=== PATIENT | male | born 1975 | race Caucasian/White ===

== ENCOUNTER 2016-09-19 16:00 | Emergency (ER) | payer OTHER, MEDICARE ==
[2016-09-19] MEDS ORDERED: NORMAL SALINE 1000 ML 1,000 ML IV ONE (16:20)
--- NOTE | 2016-09-19 16:41 | RADIOLOGY REPORT (SQ) ---
EXAM DESCRIPTION: CT HEAD WITHOUT COMPLETED DATE/TIME: 09/19/2016 4:27 pm REASON FOR STUDY: AMS, COMPARISON: None. TECHNIQUE: Axial images acquired through the brain without intravenous contrast. Images reviewed wi th bone, brain and subdural windows. Images stored on PACS. All CT scanners at this facility use dose modulation, iterative reconstruction, and/or weight based d osing when appropriate to reduce radiation dose to as low as reasonably achievable (ALARA). [facility]: Dose Right [facility]: CareDose [facility]: Dose Right [facility]: Teradose 4D [facility]: Smart Xerox RADIATION DOSE: Up-to-date CT equipment and radiation dose reduction techniques were employed. CTDIv ol: 64.6 mGy. DLP: 1163 mGy-cm. mGy. LIMITATIONS: None. FINDINGS: VENTRICLES: Normal size and contour. CEREBRUM: No masses. No hemorrhage. No midline shift. Normal muñiz/white matter differentiation. N o evidence for acute infarction. CEREBELLUM: No masses. No hemorrhage. No alteration of density. No evidence for acute infarction. EXTRAAXIAL SPACES: No fluid collections. No masses. ORBITS AND GLOBE: No intra- or extraconal masses. Normal contour of globe without masses. CALVARIUM: No fracture. PARANASAL SINUSES: Mucosal thickening is identified in several of the ethmoidal sinuses and a small m ucosal polyp retention cyst is identified in the left maxillary antra. SOFT TISSUES: No mass or hematoma. OTHER: No other significant finding. IMPRESSION: No significant intracranial abnormalities were identified. Other findings as noted abov e TECHNICAL DOCUMENTATION: JOB ID: [id number] Quality ID # [id number]: Final reports with documentation of one or more dose reduction techniques (e.g., Au tomated exposure control, adjustment of the mA and/or kV according to patient size, use of iterative reconstruction technique) 2010 [employer]- All Rights Reserved
--- NOTE | 2016-09-19 17:03 | ER Document Report ---
ED Syncope and Near Syncope - General Chief Complaint: Syncope Stated Complaint: SYNCOPE Time Seen by Provider: 09/19/16 16:12 Notes: The patient is a 41-year-old male, PMHx seizure disorder, who presents after he was outside, felt nauseous, vomited and then had a syncopal episode. When EMS arrived he was diaphoretic and sleepy. He was given 4 mg IV Zofran and 500 mL normal saline. He no longer feels nauseous or lightheaded. Patient denies chest pain, abdominal pain, numbness, tingling, hematemesis, diarrhea, constipation, fevers, drug use, alcohol use, seizure activity or back pain. TRAVEL OUTSIDE OF THE [place] IN LAST 30 DAYS: No - Related Data Allergies/Adverse Reactions: Penicillins Allergy (Verified 09/19/16 16:19) metoclopramide [From Reglan] Adverse Reaction (Verified 09/19/16 16:19) Past Medical History - General Information source: Patient - Social History Smoking Status: Current Every Day Smoker Chew tobacco use (# tins/day): No Frequency of alcohol use: None Drug Abuse: None Family History: Reviewed & Not Pertinent Neurological Medical History: Reports: Hx Seizures Surgical Hx: Negative Review of Systems - Review of Systems Notes: REVIEW OF SYSTEMS: CONSTITUTIONAL: -fevers, -chills EENT: -eye pain, -difficulty swallowing, -nasal congestion CARDIOVASCULAR:-chest pain, +syncope. RESPIRATORY: -cough, -SOB GASTROINTESTINAL: -abdominal pain, +nausea, +vomiting, -diarrhea GENITOURINARY: -dysuria, -hematuria MUSCULOSKELETAL: -back pain, -neck pain SKIN: -rash or skin lesions. HEMATOLOGIC: -easy bruising or bleeding. LYMPHATIC: -swollen, enlarged glands. NEUROLOGICAL: -altered mental status or loss of consciousness, -headache, - neurologic symptoms PSYCHIATRIC: -anxiety, -depression. ALL OTHER SYSTEMS REVIEWED AND NEGATIVE. Physical Exam - Vital signs Vitals: Temp Pulse Resp BP Pulse Ox 97.2 F 61 14 126/82 H 96 09/19/16 16:15 09/19/16 16:15 09/19/16 16:15 09/19/16 16:15 09/19/16 16:15 - Notes Notes: PHYSICAL EXAMINATION: GENERAL: Well-appearing, well-nourished and in no acute distress. HEAD: Atraumatic, normocephalic. Grass over ride side of head. EYES: Pupils equal round and reactive to light, extraocular movements intact, sclera anicteric, conjunctiva are normal. ENT: nares patent, oropharynx clear without exudates. Moist mucous membranes. NECK: Normal range of motion, supple without lymphadenopathy LUNGS: Breath sounds clear to auscultation bilaterally and equal. No wheezes rales or rhonchi. HEART: Regular rate and rhythm without murmurs ABDOMEN: Soft, nontender, normoactive bowel sounds. No guarding, no rebound. No masses appreciated. EXTREMITIES: Normal range of motion, no pitting or edema. No cyanosis. NEUROLOGICAL: Cranial nerves grossly intact. Normal speech, normal gait. Normal sensory and motor exams. PSYCH: Normal mood, normal affect. SKIN: Warm, Dry, normal turgor, no rashes or lesions noted. Course - Re-evaluation Re-evalutation: Patient appears very well and is no longer having any symptoms. Monitored on the patient monitor without any arrhythmias. Patient is low risk for dangerous causes of syncope based on [place] syncope guidelines. Patient with a leukocytosis, but no signs of infection or fever at this time. This may be reactive to his fall or there may have been some seizure activity that caused his symptoms and thus the leukocytosis. He is safe to follow with his primary care physician for further evaluation and treatment - Vital Signs Vital signs: Temp Pulse Resp BP Pulse Ox 97.2 F 61 16 115/77 93 09/19/16 16:15 09/19/16 16:15 09/19/16 19:01 09/19/16 19:00 09/19/16 19:01 - Laboratory Result Diagrams: 09/19/16 16:37 09/19/16 16:37 Laboratory results interpreted by me: 09/19/16 09/19/16 09/19/16 16:37 16:37 18:11 WBC 18.2 H Seg Neutrophils % 88.3 H Lymphocytes % 6.5 L Absolute Neutrophils 16.1 H Glucose 116 H Urine Ketones TRACE H Urine Urobilinogen 4.0 H - Diagnostic Test Radiology reviewed: Image reviewed, Reports reviewed Radiology results interpreted by me: Head CT: NAD CXR: NAD - EKG Interpretation by Me EKG shows normal: Sinus rhythm, [place], Intervals, QRS Complexes, ST-T Waves Rate: Normal Discharge - Discharge Clinical Impression: Syncope Qualifiers: Syncope type: unspecified Qualified Code(s): R55 - Syncope and collapse Condition: Stable Disposition: HOME, SELF-CARE Additional Instructions: Syncopal Episode Syncope (fainting or near-fainting) can occur from many different health problems. Or it can be a simple fainting spell requiring no treatment. It is safe for you to go home, but further evaluation will likely be necessary. Your work-up may include tests for internal bleeding, heart disease, medication problems, or near-strokes. Tests are not always required, however, depending on the nature of your problem. The warning signs of an impending faint include: dizziness, lightheadedness , nausea, hot flashes, tingling, and weakness. If this happens, lay down and put your feet up, then wait until all of these symptoms have passed before standing up again. If these episodes become recurrent, or if you develop chest pain, heart palpitations, mental confusion, blurred vision, or headache, then you should call the physician, or go to the emergency room. Prescriptions: Ondansetron HCl [Zofran 4 mg Tablet] 1 - 2 tab PO Q4H PRN #10 tablet PRN Reason:
--- NOTE | 2016-09-19 17:12 | RADIOLOGY REPORT (SQ) ---
EXAM DESCRIPTION: CHEST SINGLE VIEW COMPLETED DATE/TIME: 09/19/2016 4:49 pm REASON FOR STUDY: SOB COMPARISON: None. EXAM PARAMETERS: NUMBER OF VIEWS: One view. TECHNIQUE: Single frontal radiographic view of the chest acquired. RADIATION DOSE: NA LIMITATIONS: None. FINDINGS: LUNGS AND PLEURA: No opacities, masses or pneumothorax. No pleural effusion. MEDIASTINUM AND HILAR STRUCTURES: No masses. Contour normal. HEART AND VASCULAR STRUCTURES: Heart normal in size. Normal vasculature. BONES: No acute findings. HARDWARE: None in the chest. OTHER: No other significant finding. IMPRESSION: NO ACUTE RADIOGRAPHIC FINDING IN THE CHEST. TECHNICAL DOCUMENTATION: JOB ID: [id number]
[2016-09-19 17:13] LABS: ABSOLUTE EOSINOPHILS # (AUTO) 0.1 10^3/uL (0.0-0.6); ABSOLUTE LYMPHOCYTES (AUTO) 1.2 10^3/uL (0.5-4.7); ABSOLUTE MONOCYTES (AUTO) 0.8 10^3/uL (0.1-1.4); ABSOLUTE NEUT (AUTO) 16.1 10^3/uL (1.7-8.2); BASOPHILS % (AUTO) 0.2 % (0-2); EOSINOPHILS % (AUTO) 0.4 % (0-6); HEMATOCRIT 48.6 % (37.9-51.0); HEMOGLOBIN 16.3 g/dL (13.5-17.0); HGB HCT DIFFERENCE 0.3; LYMPHOCYTES % (AUTO) 6.5 % (13-45); MEAN CORPUSCULAR HEMOGLOBIN 29.6 pg (27.0-33.4); MEAN CORPUSCULAR HGB CONC 33.5 g/dL (32.0-36.0); MEAN CORPUSCULAR VOLUME 88 fl (80-97); MONOCYTES % (AUTO) 4.6 % (3-13); RED BLOOD COUNT 5.51 10^6/uL (4.35-5.55); RED CELL DISTRIBUTION WIDTH 12.8 % (11.5-14.0); SEGMENTED NEUTROPHILS % (AUTO) 88.3 % (42-78); WHITE BLOOD COUNT 18.2 10^3/uL (4.0-10.5)
[2016-09-19 17:27] LABS: ALANINE AMINOTRANSFERASE 29 U/L (21-72); ALBUMIN 4.1 g/dL (3.5-5.0); ALKALINE PHOSPHATASE 84 U/L (38-126); ANION GAP 12 (5-19); ASPARTATE AMINO TRANSFERASE 23 U/L (17-59); BILIRUBIN,DIRECT 0.4 mg/dL (0.0-0.4); BLOOD UREA NITROGEN 15 mg/dL (7-20); CALCIUM 9.2 mg/dL (8.4-10.2); CARBON DIOXIDE 26 mmol/L (22-30); CHLORIDE 106 mmol/L (98-107); CREATINE KINASE 58 U/L (55-170); CREATININE RESULT 0.94 mg/dL (0.52-1.25); GLUCOSE 116 mg/dL (75-110); LIPASE 62.5 U/L (23-300); POTASSIUM 3.9 mmol/L (3.6-5.0); TOTAL PROTEIN 7.4 g/dL (6.3-8.2)
[2016-09-19 17:39] LABS: TROPONIN I < 0.012 ng/mL
[2016-09-19 18:27] LABS: APPEARANCE,URINE CLEAR; BILIRUBIN,URINE NEGATIVE (NEGATIVE); GLUCOSE, URINE NEGATIVE (NEGATIVE); KETONES,URINE TRACE mg/dL (NEGATIVE); LEUKOCYTE ESTERASE,URINE NEGATIVE (NEGATIVE); NITRITE,URINE NEGATIVE (NEGATIVE); PROTEIN,URINE NEGATIVE (NEGATIVE); URINE SPECIFIC GRAVITY 1.025
[2016-09-19 18:40] LABS: URINE BARBITURATES SCREEN NEGATIVE; URINE METHADONE SCREEN NEGATIVE; URINE OPIATES LOW NEGATIVE; URINE PHENCYCLIDINE SCREEN NEGATIVE
[2016-09-19 19:38] VITALS: BP 125/82
--- NOTE | 2016-09-19 20:19 | EKG REPORT ---
SEVERITY:- NORMAL ECG - SINUS RHYTHM : Confirmed by: Danyel Maya MD 19-Sep-2016 20:18:15
== END 2016-09-19 19:38 | disposition home or self-care (01) ==
LOC: ER 16:00
DX: R55 Syncope and collapse (principal); R11.2 Nausea with vomiting, unspecified; F17.200 Nicotine dependence, unspecified, uncomplicated; Z88.0 Allergy status to penicillin
CPT/HCPCS: 93005; 94640; 99285; 96360; 36415; 82550; 83690; 85025; 80053; 81001; 84484; 80307; 83880; 71010; 70450; 93010; J7030

== ENCOUNTER 2016-09-30 13:09 | Observation (INO) | payer OTHER, MEDICARE ==
[2016-09-30] MEDS ORDERED: ASPIRIN 81 MG TABLET, CHEWABLE PO ONE (13:22)
--- NOTE | 2016-09-30 13:25 | ER Document Report ---
ED Medical Screen (RME) - General Chief Complaint: Chest Pain Stated Complaint: CHEST PAIN Time Seen by Provider: 09/30/16 13:22 Notes: Pt states he was sent to the ER by [facility] for chest pain and irregular heart rate. Pt states symptoms started this am around 1030, feels SOB. Seen in ER last week for same, told to follow up with [facility] ([facility]). I have greeted and performed a rapid initial assessment of this patient. A comprehensive ED assessment and evaluation of the patient, analysis of test results and completion of the medical decision making process will be conducted by additional ED providers. TRAVEL OUTSIDE OF THE U[place]S. IN LAST 30 DAYS: No - Related Data Allergies/Adverse Reactions: Penicillins Allergy (Verified 09/19/16 16:19) metoclopramide [From Reglan] Adverse Reaction (Verified 09/19/16 16:19) Past Medical History Neurological Medical History: Reports: Hx Seizures Physical Exam - Vital signs Vitals: Temp Pulse Resp BP Pulse Ox 98.6 F 60 16 133/79 H 97 09/30/16 13:23 09/30/16 13:23 09/30/16 13:23 09/30/16 13:23 09/30/16 13:23 Course - Vital Signs Vital signs: Temp Pulse Resp BP Pulse Ox 98.6 F 60 16 133/79 H 97 09/30/16 13:23 09/30/16 13:23 09/30/16 13:23 09/30/16 13:23 09/30/16 13:23 - Laboratory Result Diagrams: 09/30/16 14:10 09/30/16 14:10
[2016-09-30 14:25] LABS: ABSOLUTE EOSINOPHILS # (AUTO) 0.4 10^3/uL (0.0-0.6); ABSOLUTE LYMPHOCYTES (AUTO) 2.5 10^3/uL (0.5-4.7); ABSOLUTE MONOCYTES (AUTO) 0.8 10^3/uL (0.1-1.4); ABSOLUTE NEUT (AUTO) 4.5 10^3/uL (1.7-8.2); BASOPHILS % (AUTO) 0.5 % (0-2); EOSINOPHILS % (AUTO) 5.3 % (0-6); HEMATOCRIT 46.4 % (37.9-51.0); HEMOGLOBIN 16.4 g/dL (13.5-17.0); HGB HCT DIFFERENCE 2.8; LYMPHOCYTES % (AUTO) 30.7 % (13-45); MEAN CORPUSCULAR HGB CONC 35.3 g/dL (32.0-36.0); MEAN CORPUSCULAR VOLUME 88 fl (80-97); MONOCYTES % (AUTO) 9.2 % (3-13); RED BLOOD COUNT 5.29 10^6/uL (4.35-5.55); RED CELL DISTRIBUTION WIDTH 13.1 % (11.5-14.0); SEGMENTED NEUTROPHILS % (AUTO) 54.3 % (42-78); WHITE BLOOD COUNT 8.2 10^3/uL (4.0-10.5)
[2016-09-30 14:38] LABS: ALANINE AMINOTRANSFERASE 32 U/L (21-72); ALKALINE PHOSPHATASE 75 U/L (38-126); ANION GAP 10 (5-19); ASPARTATE AMINO TRANSFERASE 27 U/L (17-59); BILIRUBIN,DIRECT 0.2 mg/dL (0.0-0.4); BILIRUBIN,TOTAL 0.8 mg/dL (0.2-1.3); BLOOD UREA NITROGEN 13 mg/dL (7-20); CALCIUM 9.3 mg/dL (8.4-10.2); CARBON DIOXIDE 27 mmol/L (22-30); CHLORIDE 104 mmol/L (98-107); CREATINE KINASE 128 U/L (55-170); CREATININE RESULT 0.94 mg/dL (0.52-1.25); GLUCOSE 88 mg/dL (75-110); POTASSIUM 4.3 mmol/L (3.6-5.0); SODIUM 141.3 mmol/L (137-145); TOTAL PROTEIN 7.2 g/dL (6.3-8.2)
[2016-09-30 14:49] LABS: CREATINE KINASE MB 0.99 ng/mL (<4.55)
[2016-09-30 14:50] LABS: TROPONIN I < 0.012 ng/mL
--- NOTE | 2016-09-30 14:53 | RADIOLOGY REPORT (SQ) ---
EXAM DESCRIPTION: CHEST SINGLE VIEW COMPLETED DATE/TIME: 09/30/2016 2:21 pm REASON FOR STUDY: chest pain COMPARISON: 09/19/2016. EXAM PARAMETERS: NUMBER OF VIEWS: One view. TECHNIQUE: Single frontal radiographic view of the chest acquired. RADIATION DOSE: NA LIMITATIONS: None. FINDINGS: LUNGS AND PLEURA: No opacities, masses or pneumothorax. No pleural effusion. MEDIASTINUM AND HILAR STRUCTURES: No masses. Contour normal. HEART AND VASCULAR STRUCTURES: Heart normal in size. Normal vasculature. BONES: No acute findings. HARDWARE: None in the chest. OTHER: Possible calcified gallstone in the upper abdomen. IMPRESSION: NO ACUTE RADIOGRAPHIC FINDING IN THE CHEST. TECHNICAL DOCUMENTATION: JOB ID: [id number]
[2016-09-30] MEDS ORDERED: MAG HYDROX/AL HYDROX/SIMETH SUSP 30 ML UDCUP PO ONE (16:36)
[2016-09-30] MEDS ORDERED: LIDOCAINE 2% VISCOUS SOLN 20 ML UDCUP PO ONE (16:36)
[2016-09-30] MEDS ORDERED: NITROGLYCERIN 2% OINTMENT 1 GM PACKET TP ONE (16:39)
--- NOTE | 2016-09-30 16:39 | ER Document Report ---
ED Cardiac - General Chief Complaint: Chest Pain Stated Complaint: CHEST PAIN Time Seen by Provider: 09/30/16 13:22 Mode of Arrival: Ambulatory Information source: Patient Notes: Patient is a 41-year-old male who presents to the emergency department today for left-sided chest pain radiating into his left arm and left shoulder that has been coming and going since 06 September, he was seen here on the and had negative cardiac workup with a syncopal episode. Patient states that since that time it is still continue to come and go, today worsening. He went to the [facility] today to have a follow-up appointment from our visit in the emergency department on the of this month, and his heart rate was in the 50s which he is unsure if it is normal for him or not, but he was still having chest pain and diaphoretic so the [facility] told him to come to the emergency department. He states it feels like a "mule on my chest" and that it presents with nausea as well. He denies any history of heart attack or stroke, but both parents had heart attacks and strokes in their 40s. TRAVEL OUTSIDE OF THE [place] IN LAST 30 DAYS: No - Related Data Allergies/Adverse Reactions: Penicillins Allergy (Verified 09/19/16 16:19) metoclopramide [From Reglan] Adverse Reaction (Verified 09/19/16 16:19) Past Medical History - General Information source: Patient - Social History Smoking Status: Former Smoker Family History: Reviewed & Not Pertinent Patient has suicidal ideation: No Patient has homicidal ideation: No Neurological Medical History: Reports: Hx Seizures Renal/ Medical History: Denies: Hx Peritoneal Dialysis Review of Systems - Review of Systems Constitutional: No symptoms reported EENT: No symptoms reported Cardiovascular: See HPI Respiratory: No symptoms reported Gastrointestinal: See HPI Genitourinary: No symptoms reported Male Genitourinary: No symptoms reported Musculoskeletal: No symptoms reported Skin: No symptoms reported Hematologic/Lymphatic: No symptoms reported Neurological/Psychological: No symptoms reported Physical Exam - Vital signs Vitals: Temp Pulse Resp BP Pulse Ox 98.6 F 60 16 133/79 H 97 09/30/16 13:23 09/30/16 13:23 09/30/16 13:23 09/30/16 13:23 09/30/16 13:23 - Notes Notes: PHYSICAL EXAMINATION: GENERAL: Well-appearing and in no acute distress. HEAD: Atraumatic, normocephalic. EYES: Pupils equal round and reactive to light, extraocular movements intact, sclera anicteric, conjunctiva are normal. ENT: ear canals without erythema or foreign body, TMs pearly casillas with good bony landmarks, nares patent, oropharynx clear without exudates. Moist mucous membranes. NECK: Normal range of motion, supple without lymphadenopathy LUNGS: CTAB and equal. No wheezes rales or rhonchi. HEART: Regular rate and rhythm without murmurs ABDOMEN: Soft, no tenderness. No guarding, no rebound BACK: no vertebral tenderness, normal ROM GI/: no CVA tenderness EXTREMITIES: Normal range of motion, no pitting edema. No cyanosis. NEUROLOGICAL: Cranial nerves grossly intact. Normal sensory/motor exams. PSYCH: Normal mood, normal affect. SKIN: Warm, Dry, normal turgor, no rashes or lesions noted Course - Re-evaluation Re-evalutation: 09/30/16 17:34 Patient's significant family history and symptoms with his chest pain, this seems likely that it could be cardiac event. Dr. Galeano, hospitalist agrees to admit patient for chest pain rule out at this time a stress test. Patient never had a stress test. EKG reveals a normal sinus rhythm at a rate of 58 bpm with no evidence of ischemia. - Vital Signs Vital signs: Temp Pulse Resp BP Pulse Ox 98.6 F 60 16 133/79 H 97 09/30/16 13:23 09/30/16 13:23 09/30/16 13:23 09/30/16 13:23 09/30/16 13:23 - Laboratory Result Diagrams: 09/30/16 14:10 09/30/16 14:10 Discharge - Discharge Clinical Impression: Chest pain Qualifiers: Chest pain type: unspecified Qualified Code(s): R07.9 - Chest pain, unspecified Condition: Stable Disposition: ADMITTED OBSERVATION Admitting Provider: Hospitalist Unit Admitted: Telemetry Referrals: KEISHA TINSLEY MD [Primary Care Provider] - Follow up as needed
[2016-09-30] MEDS ORDERED: ACETAMINOPHEN 325 MG TABLET PO PRN (17:49)
--- NOTE | 2016-09-30 18:10 | PDOC H&P ---
History of Present Illness Admission Date/PCP: KEISHA TINSLEY MD Patient complains of: Chest pain History of Present Illness: JARED MACDONALD is a 41 year old male presents to the emergency department today with onset of left-sided chest pressure radiating to his left arm. This occurred while he was at rest and was associated with diaphoresis. Patient had significant relief of his chest discomfort with nitroglycerin paste in the emergency department. He had a similar episode on the of this month that was associated with a near syncopal episode. At that time his chest pressure felt worse while he was trying to mow the yard. He denies nausea or vomiting. He has a family history of early coronary artery disease in both parents. Medications have not been verified. Patient reports that he takes Depakote 1000 mg every morning and 1500 mg nightly, Paxil unknown dose. Past Medical History Cardiac Medical History: Reports: None Pulmonary Medical History: Reports: None EENT Medical History: Reports: None Neurological Medical History: Reports: Seizures Past Surgical History Past Surgical History: Reports: Orthopedic Surgery - Right shoulder, right knee Social History Information Source: Patient Lives with: Spouse/Significant other Smoking Status: Former Smoker Frequency of Alcohol Use: Rare Hx Recreational Drug Use: No Hx Prescription Drug Abuse: No - Advance Directive Resuscitation Status: Full Code Surrogate healthcare decision maker:: Family History Family History: CAD Parental Family History Reviewed: Yes Children Family History Reviewed: Yes Sibling(s) Family History Reviewed.: Yes Medication/Allergy Allergies/Adverse Reactions: Penicillins Allergy (Verified 09/19/16 16:19) metoclopramide [From Reglan] Adverse Reaction (Verified 09/19/16 16:19) Review of Systems Review of Systems: ROS: CONSTITUTIONAL- Denies fever, chills, weight loss, weight gain, anorexia HEENT- Denies visual disturbance, headache, hearing loss RESPIRATORY- Denies dyspnea, cough, hemoptysis, pleurisy CARDIAC- Denies paroxysmal nocturnal dyspnea, orthopnea, edema ABDOMEN- Denies abdominal pain, nausea, vomiting, diarrhea, constipation, hematemesis, melena, hematochezia - Denies dysuria, urgency, frequency, hematuria SKIN- Denies rash, wounds MUSCULOSKELETAL- Denies joint pain, joint swelling NEUROLOGY- Denies weakness, numbness, dizziness, dysphagia, dysarthria,ataxia ENDOCRINE- Denies polydipsia, polyuria, hot/cold intolerance PSYCHIATRIC- Denies depression, anxiety, hallucination, delusion HEMATOLOGY- Denies ease of bleeding, ease of bruising bruising Physical Exam Vital Signs: Temp Pulse Resp BP Pulse Ox 98.6 F 60 20 125/85 97 09/30/16 13:23 09/30/16 13:23 09/30/16 17:01 09/30/16 17:01 09/30/16 17:01 Intake & Output 09/29/16 09/30/16 10/01/16 06:59 06:59 06:59 Weight 95 kg PHYSICAL EXAM: GENERAL: Appears well, no acute distress HEENT: Normocephalic, no scleral icterus, conjunctiva clear, EOEM intact, PERRLA , moist mucous membranes NECK: trachea midline, no thyromegally RESPIRATORY: Clear to auscultation, no wheezes/rhonchi CARDIAC: Regular rate and rhythm, no murmur/zackary/rub ABDOMEN: Soft, no distension, no tenderness, no guarding, normal bowel sounds, negative Gonzalez sign RECTAL: deferred : deferred EXTREMITIES: No edema, cyanosis, clubbing MUSCULOSKELETAL: No joint swelling or deformity. No reproducible chest wall tenderness. No calf tenderness. VASCULAR: normal peripheral pulses NEUROLOGIC: Alert, oriented to person/place/time, normal speech, cranial nerves grossly intact, 5/5 strength in all extremities, tactile sensation intact in all extremities SKIN: No rash, no wounds, no worrisome skin lesions PSYCHIATRIC: Normal mood, normal affect Results Laboratory Results: 09/30/16 14:10 09/30/16 14:10 09/30/16 09/30/16 14:10 14:10 WBC 8.2 RBC 5.29 Hgb 16.4 Hct 46.4 MCV 88 MCH 31.0 MCHC 35.3 RDW 13.1 Plt Count 229 Seg Neutrophils % 54.3 Lymphocytes % 30.7 Monocytes % 9.2 Eosinophils % 5.3 Basophils % 0.5 Absolute Neutrophils 4.5 Absolute Lymphocytes 2.5 Absolute Monocytes 0.8 Absolute Eosinophils 0.4 Absolute Basophils 0.0 Sodium 141.3 Potassium 4.3 Chloride 104 Carbon Dioxide 27 Anion Gap 10 BUN 13 Creatinine 0.94 Est GFR ( Amer) > 60 Est GFR (Non-Af Amer) > 60 Glucose 88 Calcium 9.3 Total Bilirubin 0.8 AST 27 ALT 32 Alkaline Phosphatase 75 Total Protein 7.2 Albumin 4.0 09/30/16 09/30/16 14:10 14:10 Creatine Kinase 128 CK-MB (CK-2) 0.99 Troponin I < 0.012 EKG Comments: Normal sinus rhythm, no acute ST elevation or depression, no acute T-wave inversion. Impressions: Chest X-Ray 09/30/16 13:22 IMPRESSION: NO ACUTE RADIOGRAPHIC FINDING IN THE CHEST. Assessment & Plan - Diagnosis (1) Chest pain Qualifiers: Chest pain type: unspecified Qualified Code(s): R07.9 - Chest pain, unspecified Is this a current diagnosis for this admission?: YesPlan: Placed in observation status on telemetry monitoring. Serial cardiac enzymes. Check lipid panel in the morning. Continue nitroglycerin paste. Continue aspirin. Cardiolite stress test in the morning if enzymes negative. (2) Seizure disorder Is this a current diagnosis for this admission?: YesPlan: Continue Depakote. - Time Time Spent: 50 to 70 Minutes Anticipated discharge: Home Within: within 24 hours
[2016-09-30] MEDS ORDERED: ENOXAPARIN SODIUM INJ 40 MG/0.4 ML DISP.SYRIN SUBCUT ONE (19:00)
[2016-09-30] MEDS ORDERED: DIVALPROEX SODIUM 500 MG TAB.SR.24H PO SCH (22:00)
[2016-10-01] MEDS: NITROGLYCERIN 2% OINTMENT 1 GM PACKET TP SCH ×3 (00:51→12:12)
[2016-10-01 01:08] LABS: CREATINE KINASE MB 0.56 ng/mL (<4.55)
[2016-10-01 01:13] LABS: TROPONIN I < 0.012 ng/mL
[2016-10-01 05:59] LABS: CHOLESTEROL 160.74 mg/dL (0-200); CREATINE KINASE 71 U/L (55-170); Direct HDL 23 mg/dL (>40); TRIGLYCERIDES 202 mg/dL (<150)
[2016-10-01 06:09] LABS: CREATINE KINASE MB 0.52 ng/mL (<4.55)
[2016-10-01 06:10] LABS: DIRECT LDL 98 mg/dL (<100)
[2016-10-01 06:17] LABS: TROPONIN I < 0.012 ng/mL; VLDL CHOLESTEROL 40.4 mg/dL (10-31)
[2016-10-01] MEDS ORDERED: DIVALPROEX SODIUM 500 MG TAB.SR.24H PO SCH (08:00)
[2016-10-01 09:25] LABS: URINE BARBITURATES SCREEN NEGATIVE; URINE METHADONE SCREEN NEGATIVE; URINE OPIATES LOW NEGATIVE; URINE PHENCYCLIDINE SCREEN NEGATIVE
[2016-10-01] MEDS ORDERED: ENOXAPARIN SODIUM INJ 40 MG/0.4 ML DISP.SYRIN SUBCUT SCH ×2 (10:00)
[2016-10-01] MEDS ORDERED: ASPIRIN 325 MG TABLET, ENT COATED PO SCH (10:00)
[2016-10-01] MEDS ORDERED: REGADENOSON INJ 0.4 MG/5 ML DISP.SYRIN IV ONE (11:15)
[2016-10-01] MEDS ORDERED: AMINOPHYLLINE INJ/PF 250 MG/10 ML SDV IV ONE (11:15)
--- NOTE | 2016-10-01 12:50 | DRAGON STRESS TEST REPORT ---
INTRAVENOUS LEXISCAN CARDIOLITE STRESS TEST USING SINGLE PHOTON EMMISION COMPUTERIZED TOMOGRAPHIC. DATE OF PROCEDURE: October 01, 2016 INDICATION : Chest pain CARDIAC RISK FACTORS: Family history of CAD RESTING EKG: Sinus rhythm without any baseline ST-T wave changes STRESS EKG: No significant changes noted with LexiScan bolus REASON FOR TERMINATION: Protocol. PROCEDURE REPORT: Baseline heart rate 62 beats per minute with blood pressure of 119/65. Patient had no significant complaints. Heart rate at 2 minutes post bolus 97 with a blood pressure of 120/61. 3 minutes post bolus heart rate 75 with blood pressure of 113/66. No significant EKG changes were noted. Patient had no significant complaints during the procedure or postprocedure. Patient injected with Aminophyllin 75 mg at 3 minutes or later after Lexiscan bolus. CONCLUSIONS: Normal EKG and hemodynamic response to IV LexiScan. NUCLEAR DATA: At rest the patient was given 13.9 millicuries of technetium 99 sestamibi injected intravenously. As per protocol rest gated SPECT images were obtained. Subsequently the patient was given intravenous LexiScan at a dose of 0.4 mg in 5 mL intravenously, followed by flush with normal saline. Subsequently the stress dose of 44.0 millicuries of technetium 99 sestamibi was injected intravenously. As per protocol stress gated images were obtained. NUCLEAR INTERPRETATION: Both raw and processed data were used for interpretation. Visual, qualitative, computer-generated quantitative data was used. There was good myocardial uptake of technetium compound. Motion artifact and soft tissue attenuations were noted. Increased visceral uptake was noted. No definitive areas of transient perfusion defect noted. No definitive areas of fixed perfusion defect or scars noted. EKG gated imaging showed LV EF at 59 %, rest and stress gated EF similar visually. T. I D. ratio was 1.14. Lung heart ratio noted to be within normal limits 0.37. No significant extracardiac and abnormal radiotracer activities were noted. RV free wall uptake was noted to be []. IMPRESSION: Also refer to comments under nuclear interpretation. Also test results needs to be interpreted in the context of pretest probability. 1. There is no definitive scintigraphic evidence of LexiScan induced myocardial ischemia. 2. There is no definitive scintigraphic evidence of myocardial infarction/scar. 3. EKG gated imaging shows left ejection fraction of approximately 59 %. 4. Clinical correlation requested as occasionally single vessel disease or balanced ischemia could be missed. In approximately 10% of the cases Lexiscan may not cause adequate vasodilatory stress. RECOMMENDATIONS: Aggressive risk factor modification, medical therapy. Clinical correlation with echocardiogram derived ejection fraction. Inability to exercise by itself can lead to increased cardiovascular event risks. Consider cardiology consultation and or follow-up if clinically indicated. I AM AVAILABLE FOR CARDIOLOGY CONSULTATION AND FOLLOWUP IF REQUESTED BY PMD Carlos Ceballos M.D., [employer] Leader merchandise presentation manager, Board certified in cardiovascular diseases, Nuclear cardiology, Echocardiography Cardiac CT and cardiac MRI Ph. [phone] [facility]
--- NOTE | 2016-10-01 13:42 | PDOC DISCHARGE SUMMARY ---
General - Admit/Disc Date/PCP Admission Date/Primary Care Provider: 09/30/16 18:06 KEISHA TINSLEY MD Discharge Date: 10/01/16 - Discharge Diagnosis (1) Chest pain Is this a current diagnosis for this admission?: Yes (2) Seizure disorder Is this a current diagnosis for this admission?: Yes - Additional Information Resuscitation Status: Full Code Discharge Diet: Cardiac Discharge Activity: Activity As Tolerated Home Medications: Divalproex Sodium [Depakote] 1,000 mg PO DAILY 09/30/16 Divalproex Sodium [Depakote] 1,500 mg PO QHS 09/30/16 Paroxetine HCl [Paxil] 40 mg PO DAILY 09/30/16 History of Present Illness Patient complains of: Chest pain History of Present Illness: JARED MACDONALD is a 41 year old male presents to the emergency department today with onset of left-sided chest pressure radiating to his left arm. This occurred while he was at rest and was associated with diaphoresis. Patient had significant relief of his chest discomfort with nitroglycerin paste in the emergency department. He had a similar episode on the of this month that was associated with a near syncopal episode. At that time his chest pressure felt worse while he was trying to mow the yard. He denies nausea or vomiting. He has a family history of early coronary artery disease in both parents. Hospital Course Hospital Course: Placed in observation status overnight for chest pain. Telemetry monitoring stable. EKG normal sinus rhythm. Serial cardiac enzymes negative. Cardiolite stress test negative. Chest pain possibly gastrointestinal in nature. Patient chest pain-free at time of discharge. Follow-up primary care provider. Heart healthy diet and follow-up lipid panel in 1-2 months. Physical Exam Vital Signs: Temp Pulse Resp BP Pulse Ox 98.4 F 64 18 117/71 95 10/01/16 07:21 10/01/16 07:21 10/01/16 07:21 10/01/16 07:21 10/01/16 07:21 Intake & Output 09/30/16 10/01/16 10/02/16 06:59 06:59 06:59 Intake Total 205 Output Total 1 Balance 204 Weight 94.4 kg GENERAL: No acute distress HEENT: Conjunctiva clear, nonicteric, moist mucous membranes, no JVD, midline trachea RESPIRATORY: Clear to auscultation bilaterally, no wheezes, no rhonchi CARDIAC: Regular rate and rhythm, no murmurs/gallops/rubs ABDOMEN: Soft, nondistended, nontender, positive bowel sounds, no rebound, no guarding EXTREMETIES: No edema, cyanosis, clubbing NEUROLOGIC: Alert, oriented to person/place/time, CN's grossly intact, no focal deficits SKIN: No rash, wounds PSYCH: Normal mood, normal affect Results Laboratory Results: 10/01/16 05:27 Triglycerides 202 H Cholesterol 160.74 LDL Cholesterol Direct 98 VLDL Cholesterol 40.4 H HDL Cholesterol 23 L 10/01/16 10/01/16 10/01/16 00:15 00:15 05:27 Creatine Kinase 75 71 CK-MB (CK-2) 0.56 Troponin I < 0.012 10/01/16 05:27 Creatine Kinase CK-MB (CK-2) 0.52 Troponin I < 0.012 Labs- All tests 24 hr 09/30/16 09/30/16 09/30/16 14:10 14:10 14:10 WBC 8.2 RBC 5.29 Hgb 16.4 Hct 46.4 MCV 88 MCH 31.0 MCHC 35.3 RDW 13.1 Plt Count 229 Seg Neutrophils % 54.3 Lymphocytes % 30.7 Monocytes % 9.2 Eosinophils % 5.3 Basophils % 0.5 Absolute Neutrophils 4.5 Absolute Lymphocytes 2.5 Absolute Monocytes 0.8 Absolute Eosinophils 0.4 Absolute Basophils 0.0 Sodium 141.3 Potassium 4.3 Chloride 104 Carbon Dioxide 27 Anion Gap 10 BUN 13 Creatinine 0.94 Est GFR ( Amer) > 60 Est GFR (Non-Af Amer) > 60 Glucose 88 Calcium 9.3 Total Bilirubin 0.8 Direct Bilirubin 0.2 Indirect Bilirubin Not Reportable Neonat Total Bilirubin Not Reportable AST 27 ALT 32 Alkaline Phosphatase 75 Creatine Kinase 128 CK-MB (CK-2) 0.99 Troponin I < 0.012 Total Protein 7.2 Albumin 4.0 Triglycerides Cholesterol LDL Cholesterol Direct VLDL Cholesterol HDL Cholesterol Urine Opiates Screen Urine Methadone Screen Ur Barbiturates Screen Ur Phencyclidine Scrn Ur Amphetamines Screen U Benzodiazepines Scrn Urine Cocaine Screen U Marijuana (THC) Screen 09/30/16 09/30/16 09/30/16 17:20 17:20 17:20 WBC RBC Hgb Hct MCV MCH MCHC RDW Plt Count Seg Neutrophils % Lymphocytes % Monocytes % Eosinophils % Basophils % Absolute Neutrophils Absolute Lymphocytes Absolute Monocytes Absolute Eosinophils Absolute Basophils Sodium Potassium Chloride Carbon Dioxide Anion Gap BUN Creatinine Est GFR ( Amer) Est GFR (Non-Af Amer) Glucose Calcium Total Bilirubin Direct Bilirubin Indirect Bilirubin Neonat Total Bilirubin AST ALT Alkaline Phosphatase Creatine Kinase 104 CK-MB (CK-2) 1.13 Troponin I < 0.012 Cancelled Total Protein Albumin Triglycerides Cholesterol LDL Cholesterol Direct VLDL Cholesterol HDL Cholesterol Urine Opiates Screen Urine Methadone Screen Ur Barbiturates Screen Ur Phencyclidine Scrn Ur Amphetamines Screen U Benzodiazepines Scrn Urine Cocaine Screen U Marijuana (THC) Screen 10/01/16 10/01/16 10/01/16 00:15 00:15 05:27 WBC RBC Hgb Hct MCV MCH MCHC RDW Plt Count Seg Neutrophils % Lymphocytes % Monocytes % Eosinophils % Basophils % Absolute Neutrophils Absolute Lymphocytes Absolute Monocytes Absolute Eosinophils Absolute Basophils Sodium Potassium Chloride Carbon Dioxide Anion Gap BUN Creatinine Est GFR ( Amer) Est GFR (Non-Af Amer) Glucose Calcium Total Bilirubin Direct Bilirubin Indirect Bilirubin Neonat Total Bilirubin AST ALT Alkaline Phosphatase Creatine Kinase 75 71 CK-MB (CK-2) 0.56 Troponin I < 0.012 Total Protein Albumin Triglycerides 202 H Cholesterol 160.74 LDL Cholesterol Direct 98 VLDL Cholesterol 40.4 H HDL Cholesterol 23 L Urine Opiates Screen Urine Methadone Screen Ur Barbiturates Screen Ur Phencyclidine Scrn Ur Amphetamines Screen U Benzodiazepines Scrn Urine Cocaine Screen U Marijuana (THC) Screen 10/01/16 10/01/16 05:27 08:55 WBC RBC Hgb Hct MCV MCH MCHC RDW Plt Count Seg Neutrophils % Lymphocytes % Monocytes % Eosinophils % Basophils % Absolute Neutrophils Absolute Lymphocytes Absolute Monocytes Absolute Eosinophils Absolute Basophils Sodium Potassium Chloride Carbon Dioxide Anion Gap BUN Creatinine Est GFR ( Amer) Est GFR (Non-Af Amer) Glucose Calcium Total Bilirubin Direct Bilirubin Indirect Bilirubin Neonat Total Bilirubin AST ALT Alkaline Phosphatase Creatine Kinase CK-MB (CK-2) 0.52 Troponin I < 0.012 Total Protein Albumin Triglycerides Cholesterol LDL Cholesterol Direct VLDL Cholesterol HDL Cholesterol Urine Opiates Screen NEGATIVE Urine Methadone Screen NEGATIVE Ur Barbiturates Screen NEGATIVE Ur Phencyclidine Scrn NEGATIVE Ur Amphetamines Screen NEGATIVE U Benzodiazepines Scrn NEGATIVE Urine Cocaine Screen NEGATIVE U Marijuana (THC) Screen NEGATIVE Impressions: Chest X-Ray 07/25/17 13:22 IMPRESSION: NO ACUTE RADIOGRAPHIC FINDING IN THE CHEST. Qualifiers PATEINT BEING DISCHARGED WITH ANY OF THE FOLLOWING DIAGNOSIS?: No Plan Time Spent: Less than 30 Minutes
[2016-10-01 14:02] VITALS: BP 125/70
--- NOTE | 2016-10-01 16:20 | EKG REPORT ---
SEVERITY:- NORMAL ECG - SINUS RHYTHM : Confirmed by: Karyn Jeff MD 01-Oct-2016 16:20:14
[2016-10-01] MEDS ORDERED: ATORVASTATIN CALCIUM 20 MG TABLET PO SCH (22:00)
== END 2016-10-01 15:19 | disposition home or self-care (01) ==
LOC: ER 13:09 → EH 18:06 → 4N 21:38
PROVIDERS: ADMIT Family Medicine; ATTEND Family Medicine
DX: R07.89 Other chest pain (principal); G40.909 Epilepsy, unspecified, not intractable, without status epilepticus; R06.02 Shortness of breath; R61 Generalized hyperhidrosis; Z79.899 Other long term (current) drug therapy; Z82.49 Family history of ischemic heart disease and other diseases of the circulatory system; Z87.891 Personal history of nicotine dependence; Z86.73 Personal history of transient ischemic attack (TIA), and cerebral infarction without residual deficits
CPT/HCPCS: 93005; 99285; 96372; 36415 ×2; 82553 ×2; 82550 ×2; 85025; 80053; 84484 ×2; 80307; 80061; 93017; 71010; 78452; 93010; A9500; J2785; J3490 ×3; J1650; J0280; Q9969; G0378

== ENCOUNTER 2016-11-06 19:22 | Emergency (ER) | payer OTHER, MEDICARE ==
--- NOTE | 2016-11-06 20:07 | ER Document Report ---
HPI - HPI Pain Level: 4 Notes: Patient is a 41-year-old male who presents the ED complaining of right ankle and foot pain status post injury prior to arrival. Patient states that he was working on the ground floor when his foot went through the floor up to his duenas. Patient states that he then lost his balance and tripped over and caught himself in the process, but did hit his head off the tub. Patient states that the head was not at a high velocity. Patient states that he has a small goose egg on his forehead, but is otherwise feeling fine without any headache, loss of consciousness, nausea/vomiting, changes in vision/behavior/mentation/speech/ hearing. Patient states that his ankle pain does not radiate otherwise. Patient states that he does have some tingling in the right foot. Patient is unable to ambulate or bear weight on that foot. He has not had any over-the- counter meds for symptoms. Patient is accompanied by his family who also agree that they have not noticed any acute changes in his personality or neuro symptoms. Denies any headache, fever, neck pain, URI, sore throat, chest pain, palpitations, syncope, cough, shortness of breath, wheeze, dyspnea, abdominal pain, nausea/vomiting/diarrhea, urinary retention, dysuria, hematuria, loss of control of bowel or bladder, muscle paralysis/weakness, or rash. PMH significant for epilepsy. None recently per patient. Stable per patient. - ROS Notes: REVIEW OF SYSTEMS: CONSTITUTIONAL : Denies fever, chills, or sweats. Denies recent illness. EENT: Denies eye, ear, throat, or mouth pain or symptoms. Denies nasal or sinus congestion or discharge. Denies throat, tongue, or mouth swelling or difficulty swallowing. CARDIOVASCULAR: Denies chest pain. Denies palpitations or racing or irregular heart beat. Denies ankle edema. RESPIRATORY: Denies cough, cold, or chest congestion. Denies shortness of breath, difficulty breathing, or wheezing. GASTROINTESTINAL: Denies abdominal pain or distention. Denies nausea, vomiting , or diarrhea. Denies blood in vomitus, stools, or per rectum. Denies black, tarry stools. Denies constipation. GENITOURINARY: Denies difficulty urinating, painful urination, burning, frequency, blood in urine, or discharge. MUSCULOSKELETAL: See HPI SKIN: Denies rash, lesions or sores. NEUROLOGICAL: Denies confusion or altered mental status. Denies passing out or loss of consciousness. Denies dizziness or lightheadedness. Denies headache. Denies weakness or paralysis or loss of use of either side. Denies problems with gait or speech. Denies sensory loss, numbness, or tingling. Denies recent seizures. PSYCHIATRIC: Denies anxiety or stress. Denies depression, suicidal ideation, or homicidal ideation. ALL OTHER SYSTEMS REVIEWED AND NEGATIVE. Dictation was performed using [employer] voice recognition software - DERM Skin Color: Normal Past Medical History - Social History Smoking Status: Unknown if Ever Smoked Family History: Reviewed & Not Pertinent Patient has suicidal ideation: No Patient has homicidal ideation: No Neurological Medical History: Reports: Hx Seizures Renal/ Medical History: Denies: Hx Peritoneal Dialysis Past Surgical History: Reports: Hx Orthopedic Surgery - Right shoulder, right knee Vertical Provider Document - CONSTITUTIONAL Agree With Documented VS: Yes Notes: PHYSICAL EXAMINATION: GENERAL: Well-appearing, well-nourished and in no acute distress. A&Ox3 HEAD: Atraumatic, normocephalic. Non-tender. No watters sign. + small swelling to the left forehead w/o laceration. EYES: Pupils equal round and reactive to light, extraocular movements intact, sclera anicteric, conjunctiva are normal. No raccoon eyes/entrapment ENT: EAC clear b/l. TM's intact b/l without erythema, fluid, or perforation. Nares patent and without discharge. oropharynx clear without exudates. No tonsilar hypertrophy or erythema. Moist mucous membranes. No sinus tenderness. No hemotympanum/CSF discharge. NECK: Normal range of motion, supple without lymphadenopathy. No rigidity. No midline tenderness. Spurling negative. Chest: No flail chest. equal rise/fall. Non-tender LUNGS: Breath sounds clear to auscultation bilaterally and equal. No wheezes rales or rhonchi. HEART: Regular rate and rhythm without murmurs, rubs, gallops. ABDOMEN: Soft, nontender, nondistended abdomen. No guarding, no rebound. No masses appreciated. Normal bowel sounds present. No CVA tenderness bilaterally. Musculoskeletal: Rt ankle/foot: + mild swelling noted with minimal ecchymosis to the ankle/prox foot. LROM to passive/active. + tenderness to palp of the anterior ankle and dorsal foot. N/V intact distal. 2+ pulses. Other Ext b/l: FROM to passive/active. Strength 5+/5. No deficits noted. No bony tenderness of extremities. Back: FROM to passive/active. Strength 5+/5. No vertebral point tenderness, stepoffs, or deformities. No other bony tenderness or ecchymosis. SLR negative b/l. Extremities: No cyanosis, clubbing, or renato a b/l. Peripheral pulses 2+. Capillary refill less than 2 seconds. NEUROLOGICAL: MMSE intact. Cranial nerves grossly intact. Normal speech, normal gait. Normal sensory, motor exams. Reflexes 2+ b/l. ANGELIQUE's negative. Pronator drift negative. Heel/duenas, finger/nose wnl. Walking on heels/toes and heel to toe wnl. PSYCH: Normal mood, normal affect. SKIN: Warm, Dry, normal turgor, no rashes or lesions noted. - INFECTION CONTROL TRAVEL OUTSIDE OF THE [place] IN LAST 30 DAYS: No - RESPIRATORY O2 Sat by Pulse Oximetry: 95 Course - Re-evaluation Re-evalutation: 11/06/16 20:55 Patient is an afebrile, well-hydrated, 41-year-old male who presents the ED with contusion to his right ankle and right foot. Vitals are stable. PE otherwise unremarkable at this time. Low suspicion/risk for any septic joint, sepsis, necrotizing fasciitis, neurovascular compromise, tendon rupture, or other emergent systemic condition at this time. Patient is aware that his condition can change from initial presentation and he needs to monitor symptoms closely and seek medical attention if any acute changes. Motrin 600 mg given p.o. today. Patient was also given an ankle stirrup as well as crutches to utilize as needed. Pt declined naproxen as he has some at home. Recheck with your PCM this week. Consider consult with orthopedics/physical therapy. Return to the ED with any worsening/concerning symptoms otherwise as reviewed in discharge. Patient is in agreement. - Vital Signs Vital signs: Temp Pulse Resp BP Pulse Ox 97.7 F 77 18 108/81 95 11/06/16 19:25 11/06/16 19:25 11/06/16 19:25 11/06/16 19:25 11/06/16 19:25 Discharge - Discharge Clinical Impression: Contusion of ankle, right Qualifiers: Encounter type: initial encounter Qualified Code(s): S90.01XA - Contusion of right ankle, initial encounter Contusion of foot, right Qualifiers: Encounter type: initial encounter Qualified Code(s): S90.31XA - Contusion of right foot, initial encounter Condition: Stable Disposition: HOME, SELF-CARE Instructions: Ankle Exercise Program ([facility]), Ankle Stirrup Splint ([facility]), Use of Crutches ([facility]), Ice & Elevation ([facility]), Follow-Up Care ([facility]) Additional Instructions: Rest, Ice, Compression, Elevation Use crutches/splint as directed Tylenol/ibuprofen as needed Light stretches daily Strength exercises as able Moist heat and massage may help F/u with your PCP in 2-3 days for a recheck Consider consult(s) with Orthopedics/physical therapy for ongoing/worsening symptoms Return to the ED with any worsening symptoms and/or development of fever, headache, chest pain, palpitations, syncope, shortness of breath, trouble breathing, abdominal pain, n/v/d, blood in stool/urine, loss of control of bowel /bladder, urinary retention, muscle weakness/paralysis, saddle anesthesia, numbness/tingling, or other worsening symptoms that are concerning to you. Referrals: [facility] ([facility]) [Provider Group] - Follow up as needed
[2016-11-06] MEDS ORDERED: IBUPROFEN 600 MG TABLET PO ONE ×2 (20:41→20:51)
--- NOTE | 2016-11-06 20:46 | RADIOLOGY REPORT (SQ) ---
EXAM DESCRIPTION: ANKLE RIGHT COMPLETE COMPLETED DATE/TIME: 11/06/2016 8:13 pm REASON FOR STUDY: ankle pain/injury COMPARISON: None. NUMBER OF VIEWS: Three views. TECHNIQUE: AP, lateral, and oblique radiographic images acquired of the right ankle. LIMITATIONS: None. FINDINGS: MINERALIZATION: Normal. BONES: No acute fracture or dislocation. No worrisome bone lesions. JOINTS: No effusions. SOFT TISSUES: No soft tissue swelling. No foreign body. OTHER: No other significant finding. IMPRESSION: NO RADIOGRAPHIC EVIDENCE OF ACUTE INJURY. TECHNICAL DOCUMENTATION: JOB ID: [id number] [employer]- All Rights Reserved
--- NOTE | 2016-11-06 20:48 | RADIOLOGY REPORT (SQ) ---
EXAM DESCRIPTION: FOOT RIGHT COMPLETE COMPLETED DATE/TIME: 11/06/2016 8:13 pm REASON FOR STUDY: ankle pain/injury COMPARISON: None. NUMBER OF VIEWS: Three views. TECHNIQUE: AP, lateral and oblique radiographic images acquired of the right foot. LIMITATIONS: None. FINDINGS: MINERALIZATION: Normal. BONES: No acute fracture or dislocation. No worrisome bone lesions. JOINTS: No effusions. SOFT TISSUES: No soft tissue swelling. No foreign body. OTHER: No other significant finding. IMPRESSION: NO RADIOGRAPHIC EVIDENCE OF ACUTE INJURY. TECHNICAL DOCUMENTATION: JOB ID: [id number] [employer]- All Rights Reserved
[2016-11-06 21:30] VITALS: BP 126/77
== END 2016-11-06 21:29 | disposition home or self-care (01) ==
LOC: ER 19:22
DX: S90.01XA Contusion of right ankle, initial encounter (principal); S90.31XA Contusion of right foot, initial encounter; M25.571 Pain in right ankle and joints of right foot; M79.671 Pain in right foot; W01.198A Fall on same level from slipping, tripping and stumbling with subsequent striking against other object, initial encounter
CPT/HCPCS: 99283; 73610; 73630; L1902

== ENCOUNTER 2017-05-26 14:44 | Emergency (ER) | payer OTHER, MEDICARE ==
[2017-05-26 15:55] LABS: ABSOLUTE BASOPHILS # (AUTO) 0.1 10^3/uL (0.0-0.2); ABSOLUTE EOSINOPHILS # (AUTO) 0.3 10^3/uL (0.0-0.6); ABSOLUTE LYMPHOCYTES (AUTO) 2.1 10^3/uL (0.5-4.7); ABSOLUTE MONOCYTES (AUTO) 0.7 10^3/uL (0.1-1.4); ABSOLUTE NEUT (AUTO) 4.2 10^3/uL (1.7-8.2); EOSINOPHILS % (AUTO) 4.4 % (0-6); HEMATOCRIT 48.3 % (37.9-51.0); HEMOGLOBIN 17.1 g/dL (13.5-17.0); LYMPHOCYTES % (AUTO) 28.1 % (13-45); MEAN CORPUSCULAR HEMOGLOBIN 31.1 pg (27.0-33.4); MEAN CORPUSCULAR HGB CONC 35.4 g/dL (32.0-36.0); MEAN CORPUSCULAR VOLUME 88 fl (80-97); PLATELET COUNT 233 10^3/uL (150-450); RED BLOOD COUNT 5.49 10^6/uL (4.35-5.55); RED CELL DISTRIBUTION WIDTH 13.3 % (11.5-14.0); SEGMENTED NEUTROPHILS % (AUTO) 56.5 % (42-78); TOTAL CELLS COUNTED % (AUTO) 100 %; WHITE BLOOD COUNT 7.4 10^3/uL (4.0-10.5)
--- NOTE | 2017-05-26 16:14 | RADIOLOGY REPORT (SQ) ---
EXAM DESCRIPTION: CT HEAD WITHOUT COMPLETED DATE/TIME: 05/26/2017 3:55 pm REASON FOR STUDY: hit head after seizure COMPARISON: 09/19/2016 TECHNIQUE: Axial images acquired through the brain without intravenous contrast. Images reviewed wi th bone, brain and subdural windows. Images stored on PACS. All CT scanners at this facility use dose modulation, iterative reconstruction, and/or weight based d osing when appropriate to reduce radiation dose to as low as reasonably achievable (ALARA). [facility]: Dose Right [facility]: CareDose [facility]: Dose Right [facility]: Teradose 4D [facility]: Smart Personal Medicine RADIATION DOSE: CT Rad equipment meets quality standard of care and radiation dose reduction techniq ues were employed. CTDIvol: 64.6 mGy. DLP: 1163 mGy-cm. mGy. LIMITATIONS: None. FINDINGS: VENTRICLES: Normal size and contour. CEREBRUM: No masses. No hemorrhage. No midline shift. No evidence for acute infarction. Normal gra y/white matter differentiation. No areas of low density in the white matter. CEREBELLUM: No masses. No hemorrhage. No alteration of density. No evidence for acute infarction. EXTRAAXIAL SPACES: No fluid collections. No masses. ORBITS AND GLOBE: No intra- or extraconal masses. Normal contour of globe without masses. CALVARIUM: No fracture. PARANASAL SINUSES: There is a small mucous retention cyst in the left maxillary sinus. SOFT TISSUES: No mass or hematoma. OTHER: No other significant finding. IMPRESSION: Mild, stable left maxillary sinus disease with no acute intracranial imaging findings. EVIDENCE OF ACUTE STROKE: NO. COMMENT: Quality ID # [id number]: Final reports with documentation of one or more dose reduction techniques (e.g., Automated exposure control, adjustment of the mA and/or kV according to patient size, use of iterative reconstruction technique) TECHNICAL DOCUMENTATION: JOB ID: [id number] [employer]- All Rights Reserved Reading location - IP/workstation name: [email or web address]
[2017-05-26 16:15] LABS: ALANINE AMINOTRANSFERASE 38 U/L (21-72); ALBUMIN 4.1 g/dL (3.5-5.0); ALKALINE PHOSPHATASE 91 U/L (38-126); ANION GAP 9 (5-19); ASPARTATE AMINO TRANSFERASE 30 U/L (17-59); BILIRUBIN,DIRECT 0.4 mg/dL (0.0-0.4); BILIRUBIN,TOTAL 0.7 mg/dL (0.2-1.3); BLOOD UREA NITROGEN 14 mg/dL (7-20); CALCIUM 9.7 mg/dL (8.4-10.2); CARBON DIOXIDE 26 mmol/L (22-30); CHLORIDE 106 mmol/L (98-107); GLUCOSE 81 mg/dL (75-110); POTASSIUM 4.1 mmol/L (3.6-5.0); SODIUM 140.7 mmol/L (137-145); TOTAL PROTEIN 7.3 g/dL (6.3-8.2)
[2017-05-26 17:01] VITALS: BP 128/89
--- NOTE | 2017-05-26 17:09 | ER Document Report ---
ED Medical Screen (RME) - General Chief Complaint: Head Injury Stated Complaint: HEAD INJURY Time Seen by Provider: 05/26/17 15:11 Mode of Arrival: Ambulatory Information source: Patient Notes: This is a 41-year-old man with a history of epilepsy that was found on the floor having a seizure by his . Patient does not recall the event. He does state he hit his head and has soreness to the back of the head. He denies any tongue biting or fecal incontinence or urine incontinence. He denies any recent fever, chills or illnesses. He does state that he has been under a lot of stress lately. His medicines include Depakote. TRAVEL OUTSIDE OF THE [place] IN LAST 30 DAYS: No - HPI Onset: Just prior to arrival Onset/Duration: Sudden Quality of pain: Dull Severity: Moderate Pain Level: 2 Associated Symptoms: Headache, Other - Muscle aches Exacerbated by: Denies Relieved by: Denies Similar symptoms previously: No Recently seen / treated by doctor: No - Related Data Smoking: Non-smoker Frequency of alcohol use: None Drug Abuse: None Allergies/Adverse Reactions: Penicillins Allergy (Verified 05/26/17 14:47) metoclopramide [From Reglan] Adverse Reaction (Verified 05/26/17 14:47) Past Medical History - General Information source: Patient - Social History Cigarette use (# per day): No Chew tobacco use (# tins/day): No Frequency of alcohol use: None Drug Abuse: None Lives with: Family Family history: None - Past Medical History Cardiac Medical History: Reports: None Pulmonary Medical History: Reports: None Neurological Medical History: Reports: Hx Seizures - TBI Renal/ Medical History: Denies: Hx Peritoneal Dialysis Traumatic Medical History: Reports: Hx Traumatic Brain Injury Past Surgical History: Reports: Hx Orthopedic Surgery - Right shoulder, right leg Review of Systems - Review of Systems Constitutional: denies: Chills, Fever EENT: No symptoms reported Cardiovascular: No symptoms reported Respiratory: No symptoms reported Gastrointestinal: No symptoms reported Genitourinary: No symptoms reported Male Genitourinary: No symptoms reported Musculoskeletal: See HPI Skin: No symptoms reported Hematologic/Lymphatic: No symptoms reported Neurological/Psychological: No symptoms reported Physical Exam - Vital signs Vitals: Temp Pulse Resp BP Pulse Ox 97.6 F 61 16 126/83 H 93 05/26/17 14:52 05/26/17 14:52 05/26/17 14:52 05/26/17 14:52 05/26/17 14:52 Notes: Physical exam: GENERAL:-year-old man, alert and oriented 3, no acute distress HEAD: Normocephalic. She does have an area of tenderness with some swelling in the occipital scalp. There is no obvious step-offs or crepitus. EYES: Pupils equal round and reactive to light, extraocular movements intact, sclera anicteric, conjunctiva are normal. ENT: TMs normal, nares patent, oropharynx clear without exudates. Moist mucous membranes. NECK: Normal range of motion, supple without obvious mass or JVD. Cervical spine is nontender. LUNGS: Breath sounds clear to auscultation bilaterally and equal. No wheezes rales or rhonchi. HEART: Regular rate and rhythm without murmurs, rubs or gallops. ABDOMEN: Soft, normoactive bowel sounds. No tenderness to palpation. No guarding, no rebound. No masses appreciated. EXTREMITIES: Normal range of motion, no pitting or edema. No clubbing or cyanosis. NEUROLOGICAL: Cranial nerves II through XII grossly intact. Normal speech, moving all extremities. Motor 5/5, cerebellar good. PSYCH: Normal mood, normal affect. SKIN: Warm, Dry, normal turgor, no rashes or lesions noted. Course - Re-evaluation Re-evalutation: 05/26/17 20:08 Patient was feeling better by time of discharge. He was given a copy of today' s labs as well as CT report. [facility] and is been advised to get an evaluation by a neurologist. - Vital Signs Vital signs: Temp Pulse Resp BP Pulse Ox 98.0 F 70 18 128/89 H 94 05/26/17 17:00 05/26/17 17:00 05/26/17 17:00 05/26/17 17:00 05/26/17 17:00 - Laboratory Result Diagrams: 05/26/17 15:35 05/26/17 15:35 Laboratory results interpreted by me: 05/26/17 05/26/17 15:35 15:35 Hgb 17.1 H Magnesium 2.4 H - Diagnostic Test Radiology reviewed: Image reviewed, Reports reviewed - CT of the head shows no acute intracranial process Doctor's Discharge - Discharge Clinical Impression: Seizure grand mal, Contusion head Condition: Stable Disposition: HOME, SELF-CARE Additional Instructions: As we discussed, your labs looked good today. Head CT showed no evidence of fracture or bleed or mass. It did show some chronic sinus disease which I do not think has anything to do with today's seizure. Keep in mind that stress and lack of sleep will lower the seizure threshold. Continue current medicines. It is important that you follow-up with a neurologist: I put the number of one on the chart. Bring a copy of today's labs and CT report with you to your primary care physician at the [place]. Return to the emergency room for worsening seizures, persistent headaches or any concerns he may be getting worse. Referrals: DERRELL JOYCE MD [NO LOCAL MD] - Follow up as needed (This is the number for the neurologist)
== END 2017-05-26 17:12 | disposition home or self-care (01) ==
LOC: ER 14:44
DX: G40.909 Epilepsy, unspecified, not intractable, without status epilepticus (principal); Z79.899 Other long term (current) drug therapy; S00.93XA Contusion of unspecified part of head, initial encounter; X58.XXXA Exposure to other specified factors, initial encounter; M79.1 Myalgia; R51 Headache; Z88.0 Allergy status to penicillin; Z87.820 Personal history of traumatic brain injury
CPT/HCPCS: 36415; 70450; 80053; 83735; 85025; 99284

== ENCOUNTER 2017-12-19 21:09 | Emergency (ER) | payer OTHER, MEDICARE ==
[2017-12-19] MEDS ORDERED: FENTANYL CITRATE INJ/PF 100 MCG/2 ML AMPUL IV PRN (21:24)
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
[2017-12-19 21:48] LABS: HEMATOCRIT 46.4 % (37.9-51.0); HEMOGLOBIN 16.5 g/dL (13.5-17.0); MEAN CORPUSCULAR HEMOGLOBIN 30.9 pg (27.0-33.4); MEAN CORPUSCULAR HGB CONC 35.6 g/dL (32.0-36.0); MEAN CORPUSCULAR VOLUME 87 fl (80-97); PLATELET COUNT 241 10^3/uL (150-450); RED BLOOD COUNT 5.35 10^6/uL (4.35-5.55); RED CELL DISTRIBUTION WIDTH 13.2 % (11.5-14.0); WHITE BLOOD COUNT 11.8 10^3/uL (4.0-10.5)
[2017-12-19 22:05] LABS: ANION GAP 8 (5-19); BLOOD UREA NITROGEN 18 mg/dL (7-20); CALCIUM 9.4 mg/dL (8.4-10.2); CARBON DIOXIDE 28 mmol/L (22-30); CHLORIDE 104 mmol/L (98-107); GLUCOSE 94 mg/dL (75-110); SODIUM 140.2 mmol/L (137-145)
[2017-12-19 22:46] LABS: APPEARANCE,URINE CLEAR; BILIRUBIN,URINE NEGATIVE (NEGATIVE); COLOR,URINE YELLOW; GLUCOSE, URINE NEGATIVE (NEGATIVE); KETONES,URINE NEGATIVE (NEGATIVE); LEUKOCYTE ESTERASE,URINE NEGATIVE (NEGATIVE); NITRITE,URINE NEGATIVE (NEGATIVE); PROTEIN,URINE NEGATIVE (NEGATIVE); URINE SPECIFIC GRAVITY 1.025
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
[2017-12-19] MEDS ORDERED: LIDOCAINE 5% (700 MG) TRANSDERMAL ADH..PATCH TP ONE (23:00)
[2017-12-19] MEDS ORDERED: KETOROLAC TROMETHAMINE INJ/PF 30 MG/1 ML SDV IV ONE (23:00)
[2017-12-19 23:03] VITALS: BP 125/66
[2017-12-19] MEDS ORDERED: KETOROLAC TROMETHAMINE 60 MG/2 ML SDV IM ONE (23:13)
== END 2017-12-19 23:21 | disposition home or self-care (01) ==
LOC: ER 21:09
DX: S39.91XA Unspecified injury of abdomen, initial encounter (principal); M54.5 Low back pain; V03.10XA Pedestrian on foot injured in collision with car, pick-up truck or van in traffic accident, initial encounter; Z88.0 Allergy status to penicillin; Z87.820 Personal history of traumatic brain injury
CPT/HCPCS: 99284; 96372; 96374; 36415; 85027; 80048; 81001; 72131; 74177; J1885; J3010

== ENCOUNTER 2018-01-21 15:39 | Emergency (ER) | payer OTHER, MEDICARE ==
[2018-01-21] MEDS ORDERED: HYDROCODONE/ACETAMINOPHEN 10-325 MG TABLET PO ONE (18:02)
--- NOTE | 2018-01-21 18:17 | RADIOLOGY REPORT (SQ) ---
EXAM DESCRIPTION: ELBOW LEFT OVER 2 VIEWS COMPLETED DATE/TIME: 01/21/2018 6:01 pm REASON FOR STUDY: left elbow pain s/p injury COMPARISON: None. EXAM PARAMETERS: NUMBER OF VIEWS: Four views. TECHNIQUE: AP, lateral and 2 oblique radiographic images acquired of the left elbow. LIMITATIONS: None. FINDINGS: MINERALIZATION: Normal. BONES: No dislocation. Questionable irregularity of the lateral aspect of the radial neck seen best on 1 of the oblique projections. JOINTS: Small effusion. SOFT TISSUES: No significant soft tissue swelling. No radiopaque foreign body. OTHER: No other significant finding. IMPRESSION: Small joint effusion.Questionable irregularity of the lateral aspect of the radial neck cortex, possible nondisplaced fracture. TECHNICAL DOCUMENTATION: JOB ID: [id number] [place]-72 2010 [employer]- All Rights Reserved Reading location - IP/workstation name: [employer]
--- NOTE | 2018-01-21 18:20 | ER Document Report ---
HPI - HPI Patient complains to provider of: Left elbow pain Time Seen by Provider: 01/21/18 18:02 Pain Level: 4 Context: Patient is a 42-year-old male presenting to the emergency patient states on Thursday he fell directly onto the left elbow initially sustaining injury states he heard a "crack". States he had been resting it applying ice and taking Motrin states he thinks it was getting better. States that yesterday he was lifting his chainsaw all with his left arm and again heard another "crack." Patient states throughout today he has been unable to fully extend the left arm which is what presents him to the emergency room. Past medical history: Seizure, PTSD, anxiety Medications: Depakote, Paxil, naproxen Allergies: Penicillin Past Medical History - General Information source: Patient - Social History Smoking Status: Unknown if Ever Smoked Lives with: Family Family History: Reviewed & Not Pertinent Neurological Medical History: Reports: Hx Seizures - TBI Renal/ Medical History: Denies: Hx Peritoneal Dialysis Psychiatric Medical History: Reports: Hx Depression - PTSD Traumatic Medical History: Reports: Hx Traumatic Brain Injury Past Surgical History: Reports: Hx Orthopedic Surgery - Right shoulder, right leg Vertical Provider Document - CONSTITUTIONAL Agree With Documented VS: Yes Notes: GENERAL: Alert, interacts well. No acute distress. HEAD: Normocephalic, atraumatic. EYES: Pupils equal, round, and reactive to light. Extraocular movements intact. ENT: Oral mucosa moist, tongue midline. NECK: Full range of motion. Supple. Trachea midline. LUNGS: Clear to auscultation bilaterally, no wheezes, rales, or rhonchi. No respiratory distress. HEART: Regular rate and rhythm. No murmur ABDOMEN: Soft, non-tender. Non-distended. Bowel sounds present in all 4 quadrants. EXTREMITIES: Moves all 4 extremities spontaneously. normal radial and dorsalis pedis pulses bilaterally. Swelling noted left elbow. Patient unable to fully extend elbow. +PMS distal left extremity. Radial, ulnar, medial nerve intact. 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 BACK: no cervical, thoracic, lumbar midline tenderness. No saddle anesthesia, normal distal neurovascular exam. NEUROLOGICAL: Alert and oriented x3. Normal speech. cranial nerves II through XII grossly intact. PSYCH: Normal affect, normal mood. SKIN: Warm, dry, normal turgor. No rashes or lesions noted. - INFECTION CONTROL TRAVEL OUTSIDE OF THE [place] IN LAST 30 DAYS: No Course - Re-evaluation Re-evalutation: 01/21/18 18:32 Possible radial neck nondisplaced fracture seen on x-ray. Discussed this with patient at bedside. Posterior long-arm splint to be applied and follow-up with orthopedics. Return precautions discussed. After splint application, capillary refill distal left extremity less than 2 seconds. - Vital Signs Vital signs: Temp Pulse Resp BP Pulse Ox 97.8 F 81 16 135/71 H 96 01/21/18 15:53 01/21/18 15:53 01/21/18 15:53 01/21/18 15:53 01/21/18 15:53 Discharge - Discharge Clinical Impression: Radial neck fracture Qualifiers: Encounter type: initial encounter Fracture type: closed Fracture alignment: nondisplaced Laterality: left Qualified Code(s): S52.135A - Nondisplaced fracture of neck of left radius, initial encounter for closed fracture Condition: Stable Disposition: HOME, SELF-CARE Instructions: Fractured Radius ([facility]) Additional Instructions: As we discussed your x-ray is questionable for a radius fracture. You should keep the splint we have placed on until you follow-up with orthopedics. The phone number and address for the orthopedic facility we would like you to follow -up with will be within this packet. Please take [id number] Tylenol and Motrin for your pain. Please return to the emergency room for any other concerning symptoms. Referrals: YEE CINTRON NP [Primary Care Provider] - Follow up as needed DIMITRIOS MCALLISTER MD [ACTIVE STAFF] - Follow up as needed
[2018-01-21 20:59] VITALS: BP 137/95
== END 2018-01-21 19:50 | disposition home or self-care (01) ==
LOC: ER 15:39
DX: S52.135A Nondisplaced fracture of neck of left radius, initial encounter for closed fracture (principal); M25.522 Pain in left elbow; W18.30XA Fall on same level, unspecified, initial encounter; Z88.0 Allergy status to penicillin
CPT/HCPCS: 99283

== ENCOUNTER 2019-02-02 03:02 | Emergency (ER) | payer OTHER, MEDICARE ==
[2019-02-02] MEDS ORDERED: ONDANSETRON HCL INJ/PF 4 MG/2 ML SDV IV ONE ×2 (03:34→04:15)
[2019-02-02 03:40] LABS: ABSOLUTE BASOPHILS # (AUTO) 0.1 10^3/uL (0.0-0.2); ABSOLUTE EOSINOPHILS # (AUTO) 0.5 10^3/uL (0.0-0.6); ABSOLUTE LYMPHOCYTES (AUTO) 2.9 10^3/uL (0.5-4.7); ABSOLUTE MONOCYTES (AUTO) 0.8 10^3/uL (0.1-1.4); ABSOLUTE NEUT (AUTO) 6.8 10^3/uL (1.7-8.2); BASOPHILS % (AUTO) 0.9 % (0-2); EOSINOPHILS % (AUTO) 4.7 % (0-6); HEMATOCRIT 49.3 % (37.9-51.0); HEMOGLOBIN 17.4 g/dL (13.5-17.0); LYMPHOCYTES % (AUTO) 25.8 % (13-45); MEAN CORPUSCULAR HEMOGLOBIN 30.6 pg (27.0-33.4); MEAN CORPUSCULAR HGB CONC 35.2 g/dL (32.0-36.0); MEAN CORPUSCULAR VOLUME 87 fl (80-97); MONOCYTES % (AUTO) 7.5 % (3-13); PLATELET COUNT 256 10^3/uL (150-450); RED BLOOD COUNT 5.67 10^6/uL (4.35-5.55); RED CELL DISTRIBUTION WIDTH 13.3 % (11.5-14.0); SEGMENTED NEUTROPHILS % (AUTO) 61.1 % (42-78); TOTAL CELLS COUNTED % (AUTO) 100 %; WHITE BLOOD COUNT 11.2 10^3/uL (4.0-10.5)
[2019-02-02 04:07] LABS: ALBUMIN 4.4 g/dL (3.5-5.0); ALKALINE PHOSPHATASE 90 U/L (38-126); ANION GAP 14 (5-19); ASPARTATE AMINO TRANSFERASE 29 U/L (17-59); BILIRUBIN,DIRECT 0.1 mg/dL (0.0-0.4); BILIRUBIN,TOTAL 0.6 mg/dL (0.2-1.3); BLOOD UREA NITROGEN 13 mg/dL (7-20); CALCIUM 10.3 mg/dL (8.4-10.2); CARBON DIOXIDE 24 mmol/L (22-30); CHLORIDE 105 mmol/L (98-107); CREATINE KINASE 66 U/L (55-170); GLUCOSE 110 mg/dL (75-110); POTASSIUM 4.2 mmol/L (3.6-5.0); TOTAL PROTEIN 7.8 g/dL (6.3-8.2)
--- NOTE | 2019-02-02 04:14 | RADIOLOGY REPORT (SQ) ---
EXAM DESCRIPTION: X-ray two view chest. CLINICAL HISTORY: 43 years Male, chest pain COMPARISON: 09/30/2016 TECHNIQUE: PA and Lateral views of the chest performed on 02/02/2019 FINDINGS: The lungs are well expanded and are clear. The costophrenic sulci are clear. There is no evidence of a pneumothorax. The cardiac silhouette is normal in size. The mediastinal contours are normal. No acute osseous abnormalities are identified. No focal soft tissue abnormalities are identified. IMPRESSION: No evidence of acute intrathoracic disease.
[2019-02-02] MEDS ORDERED: NORMAL SALINE 1000 ML 1,000 ML IV ONE (04:15)
[2019-02-02] MEDS ORDERED: MORPHINE SULFATE 10 MG/ML INJ IV ONE (04:15)
--- NOTE | 2019-02-02 04:16 | ER Document Report ---
ED GI/ - General Chief Complaint: Epigastric Pain Stated Complaint: Epigastric pain Time Seen by Provider: 02/02/19 04:10 Notes: Patient is a 43-year-old male that comes to the emergency department for chief complaint of sudden onset sharp pain in the upper abdomen that started this morning, he states he had fried chicken and English fries for dinner, he states he vomited 4 times after the pain started. States that he thought maybe it was from anxiety and he tried to take his anxiety medication but he vomited this up as well. He denies flank pain, fever, difficulty breathing, or any other locations of pain. He denies any abdominal surgeries, denies recent alcohol, denies recreational drugs. Only past medical history is orthopedic surgery, anxiety, and he dips. TRAVEL OUTSIDE OF THE [place] IN LAST 30 DAYS: No - Related Data Allergies/Adverse Reactions: Penicillins Allergy (Verified 01/21/18 15:47) metoclopramide [From Reglan] Adverse Reaction (Verified 01/21/18 15:47) Home Medications: depakote. anxiety med Past Medical History - General Information source: Patient - Social History Smoking Status: Never Smoker Chew tobacco use (# tins/day): Yes Frequency of alcohol use: Occasional Drug Abuse: None Lives with: Family Family History: Reviewed & Not Pertinent Patient has suicidal ideation: No Patient has homicidal ideation: No Neurological Medical History: Reports: Hx Seizures - TBI Renal/ Medical History: Denies: Hx Peritoneal Dialysis Psychiatric Medical History: Reports: Hx Anxiety, Hx Depression - PTSD Traumatic Medical History: Reports: Hx Traumatic Brain Injury Past Surgical History: Reports: Hx Orthopedic Surgery - Right shoulder, right leg - Immunizations Immunizations up to date: Yes Hx Diphtheria, Pertussis, Tetanus Vaccination: Yes Review of Systems - Review of Systems Constitutional: No symptoms reported EENT: No symptoms reported Cardiovascular: No symptoms reported Respiratory: No symptoms reported Gastrointestinal: See HPI Genitourinary: No symptoms reported Male Genitourinary: No symptoms reported Musculoskeletal: No symptoms reported Skin: No symptoms reported Hematologic/Lymphatic: No symptoms reported Neurological/Psychological: No symptoms reported Physical Exam - Vital signs Vitals: Temp Pulse Resp BP Pulse Ox 97.4 F 68 20 129/104 H 99 02/02/19 03:14 02/02/19 03:14 02/02/19 03:14 02/02/19 03:14 02/02/19 03:14 - Notes Notes: GENERAL: Patient restless, appears uncomfortable but does not appear to be in severe distress HEAD: Normocephalic, atraumatic. EYES: Pupils equal, round, and reactive to light. Extraocular movements intact. ENT: Oral mucosa moist, tongue midline. Oropharynx unremarkable. Airway patent. NECK: Full range of motion. Supple. Trachea midline. LUNGS: Clear to auscultation bilaterally, no wheezes, rales, or rhonchi. No respiratory distress. HEART: Regular rate and rhythm. No murmur ABDOMEN: Epigastric tenderness, mild tenderness of the right and left upper quadrants but not as tender. Lower abdomen completely benign. Bowel sounds present. No rigidity or guarding. GENITOURINARY: Deferred EXTREMITIES: Moves all 4 extremities spontaneously. No edema, normal radial and dorsalis pedis pulses bilaterally. No cyanosis. BACK: no cervical, thoracic, lumbar midline tenderness. No saddle anesthesia, normal distal neurovascular exam. Moves all extremities in full range of motion. NEUROLOGICAL: Alert and oriented x3. Normal speech. Cranial nerves II through XII grossly intact. PSYCH: Restless SKIN: Warm, dry, normal turgor. No rashes or lesions noted. Course - Re-evaluation Re-evalutation: Patient with epigastric tenderness on exam, does appear uncomfortable but not toxic. Vital signs unremarkable. Treating with pain and nausea medications. I did review chest x-ray and EKG but these do not show acute findings. Troponin negative as expected. Appears to be gastrointestinal versus gallbladder cause of his symptoms. CBC unremarkable, chemistry and lipase unremarkable, urine unremarkable. Right upper quadrant ultrasound unremarkable. On reevaluation patient is more comfortable but not completely symptom-free. Given p.o. medications including Carafate and Pepcid. On reevaluation symptoms have completely resolved. Suspect esophageal spasm. Discussed suspected esophagitis/gastritis, possible gallbladder dyskinesis, and possible other etiologies. Discussed primary care follow-up and return precautions. Patient states appreciation and agreement. Stable at time of discharge. - Vital Signs Vital signs: Temp Pulse Resp BP Pulse Ox 97.8 F 61 18 136/81 H 99 02/02/19 06:45 02/02/19 06:45 02/02/19 06:45 02/02/19 06:45 02/02/19 06:45 - Laboratory Result Diagrams: 02/02/19 03:29 02/02/19 03:29 Laboratory results interpreted by me: 02/02/19 02/02/19 03:29 03:29 WBC 11.2 H RBC 5.67 H Hgb 17.4 H Calcium 10.3 H - EKG Interpretation by Me Additional EKG results interpreted by me: EKG shows sinus arrhythmia, P waves are present, QTC of 418, normal axis, no T wave inversions or ST segment changes in consecutive leads. Unfortunately artifact is present. Discharge - Discharge Clinical Impression: Epigastric pain Vomiting Qualifiers: Vomiting type: unspecified Vomiting Intractability: non-intractable Nausea presence: with nausea Qualified Code(s): R11.2 - Nausea with vomiting, unspecified Condition: Stable Disposition: HOME, SELF-CARE Additional Instructions: Your symptoms and examination indicate esophageal spasm and gastritis/esophagitis (inflammation of your upper gastrointestinal tract). Take Phenergan for nausea, take Carafate and Pepcid as prescribed to help treat this, you can take additional Rolaids, Tums, Maalox, etc. if needed. You can take Tylenol for pain. Avoid NSAIDs, alcohol, smoking/nicotine, caffeine, spicy food. Start with clear fluids, progress to bland diet. Follow-up with primary care for additional evaluation and treatment including possible H. pylori testing, HIDA scan, etc. Return if you worsen including uncontrolled vomiting, vomiting blood, black stools, severe pain, fever of 100.4 or greater, or any other concerning or worsening symptoms. Prescriptions: Sucralfate [Carafate 1 gm Tablet] 1 gm PO QID #20 tablet Famotidine [Pepcid 20 mg Tablet] 20 mg PO BID #20 tablet Promethazine HCl [Phenergan 25 mg Tablet] 25 mg PO Q6H PRN #20 tablet PRN Reason: Forms: Return to Work
[2019-02-02 04:19] LABS: CREATINE KINASE MB 0.44 ng/mL (<4.55)
[2019-02-02 04:22] LABS: TROPONIN I < 0.012 ng/mL
--- NOTE | 2019-02-02 05:27 | RADIOLOGY REPORT (SQ) ---
CLINICAL HISTORY: epigastric pain, vomiting COMPARISON: None. TECHNIQUE: US ABDOMEN LIMITED on 02/02/2019 4:14 AM [employer] FINDINGS: Liver is normal in echotexture. Portal vein is patent. Gallbladder is unremarkable without gallstones, wall thickening or pericholecystic fluid. Common bile duct measures 3 mm. Right kidney measures 10.1 cm without hydronephrosis. IMPRESSION: Unremarkable study.
[2019-02-02] MEDS ORDERED: SUCRALFATE 1 GM TABLET PO ONE (05:43)
[2019-02-02] MEDS ORDERED: FAMOTIDINE 20 MG TABLET PO ONE (05:43)
[2019-02-02] MEDS ORDERED: PROMETHAZINE HCL 25 MG TABLET PO ONE (05:43)
[2019-02-02 06:53] VITALS: BP 136/81
--- NOTE | 2019-02-02 23:37 | EKG REPORT ---
SEVERITY:- ABNORMAL ECG - SINUS RHYTHM REC REPEAT EKG SECONDARY TO ARTIFACTS : Confirmed by: Carlos Ceballos 02-Feb-2019 23:35:50
== END 2019-02-02 06:53 | disposition home or self-care (01) ==
LOC: ER 03:02
DX: R10.13 Epigastric pain (principal); R10.816 Epigastric abdominal tenderness; R10.811 Right upper quadrant abdominal tenderness; R10.812 Left upper quadrant abdominal tenderness; R11.2 Nausea with vomiting, unspecified; I49.9 Cardiac arrhythmia, unspecified; F41.9 Anxiety disorder, unspecified; F32.9 Major depressive disorder, single episode, unspecified; Z79.899 Other long term (current) drug therapy; Z72.0 Tobacco use; Z88.0 Allergy status to penicillin
CPT/HCPCS: 93005; 96376; 99284; 96374; 96375; 36415; 82553; 82550; 83690; 85025; 80053; 84484; 71046; 76705; 93010; J2270; J2405; J7030

== ENCOUNTER 2019-02-19 02:23 | Emergency (ER) | payer OTHER, MEDICARE ==
[2019-02-19] MEDS ORDERED: ONDANSETRON HCL 8 MG TABLET PO ONE (03:01)
[2019-02-19 03:26] LABS: ABSOLUTE BASOPHILS # (AUTO) 0.1 10^3/uL (0.0-0.2); ABSOLUTE EOSINOPHILS # (AUTO) 0.5 10^3/uL (0.0-0.6); ABSOLUTE LYMPHOCYTES (AUTO) 2.4 10^3/uL (0.5-4.7); ABSOLUTE NEUT (AUTO) 8.6 10^3/uL (1.7-8.2); BASOPHILS % (AUTO) 0.5 % (0-2); EOSINOPHILS % (AUTO) 4.3 % (0-6); HEMATOCRIT 49.5 % (37.9-51.0); HEMOGLOBIN 17.2 g/dL (13.5-17.0); LYMPHOCYTES % (AUTO) 18.8 % (13-45); MEAN CORPUSCULAR HEMOGLOBIN 30.4 pg (27.0-33.4); MEAN CORPUSCULAR HGB CONC 34.8 g/dL (32.0-36.0); MEAN CORPUSCULAR VOLUME 87 fl (80-97); MONOCYTES % (AUTO) 7.9 % (3-13); PLATELET COUNT 279 10^3/uL (150-450); RED BLOOD COUNT 5.67 10^6/uL (4.35-5.55); RED CELL DISTRIBUTION WIDTH 12.8 % (11.5-14.0); SEGMENTED NEUTROPHILS % (AUTO) 68.5 % (42-78); TOTAL CELLS COUNTED % (AUTO) 100 %; WHITE BLOOD COUNT 12.5 10^3/uL (4.0-10.5)
[2019-02-19 03:30] LABS: APPEARANCE,URINE CLEAR; BILIRUBIN,URINE NEGATIVE (NEGATIVE); COLOR,URINE YELLOW; GLUCOSE, URINE NEGATIVE (NEGATIVE); KETONES,URINE NEGATIVE (NEGATIVE); LEUKOCYTE ESTERASE,URINE NEGATIVE (NEGATIVE); NITRITE,URINE NEGATIVE (NEGATIVE); PROTEIN,URINE NEGATIVE (NEGATIVE); URINE SPECIFIC GRAVITY 1.019; UROBILINOGEN,URINE NEGATIVE mg/dL (<2.0)
[2019-02-19 03:44] LABS: ALBUMIN 4.2 g/dL (3.5-5.0); ALKALINE PHOSPHATASE 115 U/L (38-126); ANION GAP 15 (5-19); ASPARTATE AMINO TRANSFERASE 76 U/L (17-59); BILIRUBIN,DIRECT 0.2 mg/dL (0.0-0.4); BILIRUBIN,TOTAL 0.5 mg/dL (0.2-1.3); BLOOD UREA NITROGEN 14 mg/dL (7-20); CALCIUM 9.8 mg/dL (8.4-10.2); CARBON DIOXIDE 25 mmol/L (22-30); CHLORIDE 104 mmol/L (98-107); GLUCOSE 101 mg/dL (75-110); POTASSIUM 4.1 mmol/L (3.6-5.0); TOTAL PROTEIN 7.9 g/dL (6.3-8.2)
[2019-02-19] MEDS: PROMETHAZINE HCL INJ 25 MG/1 ML VIAL IM ONE ×2 (06:26→06:53)
[2019-02-19] MEDS: DICYCLOMINE HCL INJ 20 MG/2 ML AMPULE IM ONE ×2 (06:26→06:53)
[2019-02-19] MEDS ORDERED: PROMETHAZINE HCL INJ 25 MG/1 ML VIAL IV ONE (06:32)
[2019-02-19] MEDS ORDERED: DIPHENHYDRAMINE HCL 50 MG/ML VIAL IV ONE (06:32)
[2019-02-19] MEDS ORDERED: MAG HYDROX/AL HYDROX/SIMETH SUSP 30 ML UDCUP PO ONE (06:33)
[2019-02-19] MEDS ORDERED: NORMAL SALINE 1000 ML 1,000 ML IV ONE (06:33)
[2019-02-19] MEDS ORDERED: LIDOCAINE 2% VISCOUS SOLN 20 ML UDCUP PO ONE (06:33)
--- NOTE | 2019-02-19 06:35 | ER Document Report ---
ED GI/ - General Chief Complaint: Epigastric Pain Stated Complaint: ABDOMINAL PAIN Time Seen by Provider: 02/19/19 06:03 Primary Care Provider: YEE CINTRON NP [NO LOCAL MD] - Follow up as needed Notes: Mr. Antonio is a 43 yo m w/ PMH epilepsy on Depakote presenting to the ED for abdominal pain. Patient states that he was told previously that his gallbladder "is inflamed". Patient states that this all began yesterday evening with episodes of nausea and vomiting. He is thrown up 5-7 times of nonbloody ritu ewhat bilious vomitus. He states initially it was food and then became yellow in coloration later. Patient denies any diarrhea and states his last BM was yesterday a.m. and it was normal. Patient denies any bloody stools. No lightheadedness, chest pain or shortness of breath. He states that the pain comes in waves and feels like a hot sugar coating hand his epigastrium, right upper quadrant and left upper quadrant. It does not radiate anywhere. He denies any known ill contacts or recent travel. No fever or chills. TRAVEL OUTSIDE OF THE [place] IN LAST 30 DAYS: No - Related Data Allergies/Adverse Reactions: Penicillins Allergy (Verified 01/21/18 15:47) metoclopramide [From Reglan] Adverse Reaction (Verified 01/21/18 15:47) Home Medications: otc pepcid. and 2 others. Past Medical History - Social History Smoking Status: Never Smoker Chew tobacco use (# tins/day): No Frequency of alcohol use: None Drug Abuse: None Family History: Reviewed & Not Pertinent Patient has suicidal ideation: No Patient has homicidal ideation: No Neurological Medical History: Reports: Hx Seizures - TBI Renal/ Medical History: Denies: Hx Peritoneal Dialysis Psychiatric Medical History: Reports: Hx Anxiety, Hx Depression - PTSD Traumatic Medical History: Reports: Hx Traumatic Brain Injury Past Surgical History: Reports: Hx Orthopedic Surgery - Right shoulder, right leg - Immunizations Immunizations up to date: Yes Hx Diphtheria, Pertussis, Tetanus Vaccination: Yes Review of Systems - Review of Systems Constitutional: See HPI EENT: No symptoms reported Cardiovascular: No symptoms reported Respiratory: No symptoms reported Gastrointestinal: See HPI Genitourinary: No symptoms reported Male Genitourinary: No symptoms reported Musculoskeletal: No symptoms reported Skin: No symptoms reported Hematologic/Lymphatic: No symptoms reported Neurological/Psychological: No symptoms reported Physical Exam - Vital signs Vitals: Temp Pulse Resp BP Pulse Ox 97.5 F 64 20 179/96 H 99 02/19/19 02:49 02/19/19 02:49 02/19/19 02:49 02/19/19 02:49 02/19/19 02:49 Interpretation: Hypertensive - General General appearance: Appears well, Alert - HEENT Head: Normocephalic, Atraumatic Eyes: Normal Pupils: PERRL - Respiratory Respiratory status: No respiratory distress Chest status: Nontender Breath sounds: Normal Chest palpation: Normal - Cardiovascular Rhythm: Regular Heart sounds: Normal auscultation Murmur: No - Abdominal Inspection: Normal Distension: No distension Bowel sounds: Normal Tenderness: Tender - Patient is tender in RUQ, epigastrium and LUQ. No rebound or guarding., Gonzalez's sign. No: McBurney's point, Guarding, Rebound Organomegaly: No organomegaly - Back Back: Normal, Nontender - Extremities General upper extremity: Normal inspection, Nontender, Normal color, Normal ROM, Normal temperature General lower extremity: Normal inspection, Nontender, Normal color, Normal ROM, Normal temperature, Normal weight bearing. No: Armin's sign - Neurological Neuro grossly intact: Yes Cognition: Normal Orientation: AAOx4 [place] Coma Scale Eye Opening: Spontaneous [place] Coma Scale Verbal: Oriented [place] Coma Scale Motor: Obeys Commands [place] Coma Scale Total: 15 Speech: Normal Motor strength normal: LUE, RUE, LLE, RLE Sensory: Normal - Psychological Associated symptoms: Normal affect, Normal mood - Skin Skin Temperature: Warm Skin Moisture: Dry Skin Color: Normal Course - Re-evaluation Re-evalutation: Patient is generally well-appearing and nontoxic. Initial vitals notable for elevated blood pressure. Patient was seen many hours prior to my arrival and given Zofran ODT in triage. Upon my evaluation, I change his Phenergan and doxylamine to IV and will obtain IV access. Repeat troponin will be added on as well as a initial troponin from the initial blood work to get a delta troponin. Differential diagnosis includes GERD, gastritis, PUD, cholelithiasis, cholecystitis (less likely), cannabinoid hyperemesis syndrome, dehydration, electrolyte abnormality 02/19/19 07:12 CBC notable for leukocytosis to 12.5 without left shift. H&H is stable. CMP within normal limits. Patient was ordered for both IV Phenergan as well as IV Bentyl and IV fluids. Will reassess pending results of ultrasound however patient will likely need CT abdomen pelvis given his pain. 02/19/19 07:16 Ultrasound shows evidence of mild layering of biliary sludge as well as hepatic steatosis. Patient ordered for pain control prior to CT. CT ordered. Patient also ordered for GI cocktail to help coat and protect his stomach. 02/19/19 10:43 CT shows evidence of cholelithiasis without any evidence of cholecystitis. Patient will be discharged with recommendations to eat a bland diet, avoid foods high in fats and recommended follow-up with his primary care doctor for referral for surgery for an outpatient elective cholecystectomy given his repeat episodes of ongoing vomiting and symptomatic cholelithiasis. Patient also recommended to drink plenty of fluids and stay well-hydrated. Patient will be discharged with Zofran ODT's for nausea. Patient given return precautions. - Vital Signs Vital signs: Temp Pulse Resp BP Pulse Ox 97.7 F 65 16 151/89 H 99 02/19/19 07:07 02/19/19 07:07 02/19/19 07:07 02/19/19 07:07 02/19/19 07:07 - Laboratory Result Diagrams: 02/19/19 03:08 02/19/19 03:08 Laboratory results interpreted by me: 02/19/19 02/19/19 03:08 03:08 WBC 12.5 H RBC 5.67 H Hgb 17.2 H Absolute Neuts (auto) 8.6 H AST 76 H Discharge - Discharge Clinical Impression: Hepatic steatosis Cholelithiases Qualifiers: Cholelithiasis location: gallbladder Cholecystitis presence: without cholecystitis Biliary obstruction: without biliary obstruction Qualified Code(s): K80.20 - Calculus of gallbladder without cholecystitis without obstruction Nausea & vomiting Qualifiers: Vomiting type: unspecified Vomiting Intractability: non-intractable Qualified Code(s): R11.2 - Nausea with vomiting, unspecified Condition: Good Disposition: HOME, SELF-CARE Instructions: Antinausea Medication ([facility]), Clear Liquid Diet ([facility]), Low-Fat Diet ([facility]) Additional Instructions: I would recommend that you start with a clear liquid diet. You can upgrade to bland foods such as the BRAT diet with bread, rice, apples/applesauce, toast, or plain pasta (without tomato sauce). I would also recommend that you stay away from foods that are high in FAT. This will likely exacerbate or worsen your gallbladder disease. I would recommend that you follow-up with your primary care doctor as needed as an outpatient. It might be helpful for you to have your gallbladder removed electively and therefore you will need a referral from your primary care doctor for a surgeon. Use Zofran sublingual dissolving tablets as needed every 8 hours for nausea or vomiting. Prescriptions: Ondansetron [Zofran Odt 4 mg Tablet] 1 tab PO Q4H PRN #30 tab.rapdis PRN Reason: For Nausea/Vomiting Referrals: YEE CINTRON, JOON [NO LOCAL MD] - Follow up as needed
--- NOTE | 2019-02-19 07:32 | RADIOLOGY REPORT (SQ) ---
EXAM DESCRIPTION: US ABDOMEN LIMITED COMPLETED DATE/TME: 02/19/2019 05:14 EXAM DESCRIPTION: CLINICAL HISTORY: RUQ pain COMPARISON: 02/02/2019 TECHNIQUE: Real-time sonographic images of the right upper abdomen were obtained using a curved multihertz transducer. FINDINGS: Pancreas: The visualized portions of the pancreas are unremarkable. Vascular: The visualized portions of the aorta and IVC are unremarkable. Liver: The liver has normal contour and increased echogenicity. Hepatopedal flow in the portal vein. Findings confirmed with color and spectral Doppler imaging. The common bile duct measures 0.4 cm. Gallbladder: Negative reported sonographic Gonzalez sign. Mild layering gallbladder sludge. No shadowing gallstones. Normal gallbladder wall thickness. Right Kidney: The right kidney measures 11.5 cm in length. No hydronephrosis, solid renal mass, or shadowing calculi. IMPRESSION: 1. Mild layering gallbladder sludge. No cholelithiasis. 2. Hepatic steatosis.
[2019-02-19 07:44] LABS: URINE AMPHETAMINES SCREEN NEGATIVE; URINE BARBITURATES SCREEN NEGATIVE; URINE BENZODIAZEPINES SCREEN NEGATIVE; URINE COCAINE SCREEN NEGATIVE; URINE MARIJUANA (THC) SCREEN NEGATIVE; URINE METHADONE SCREEN NEGATIVE; URINE PHENCYCLIDINE SCREEN NEGATIVE
[2019-02-19] MEDS ORDERED: MORPHINE SULFATE 10 MG/ML INJ IV ONE (08:33)
--- NOTE | 2019-02-19 09:23 | RADIOLOGY REPORT (SQ) ---
EXAM DESCRIPTION: CT ABD/PELVIS WITH IV ONLY COMPLETED DATE/TIME: 02/19/2019 8:55 am REASON FOR STUDY: abd pain, epigastric COMPARISON: 2018 TECHNIQUE: CT scan of the abdomen and pelvis performed using helical scanning technique with dynamic intravenous contrast injection. No oral contrast. Images reviewed with lung, soft tissue, and bone windows. Reconstructed coronal and sagittal MPR images reviewed. Delayed images for evaluation of the urinary system also acquired. All images stored on PACS. All CT scanners at this facility use dose modulation, iterative reconstruction, and/or weight based d osing when appropriate to reduce radiation dose to as low as reasonably achievable (ALARA). [facility]: Dose Right [facility]: CareDose [facility]: Dose Right [facility]: Teradose 4D [facility]: [employer] CONTRAST TYPE AND DOSE: contrast/concentration: Isovue 350.00 mg/ml; Total Contrast Delivered: 100.0 ml; Total Saline Delivered: 72.0 ml RENAL FUNCTION: GFR > 60. RADIATION DOSE: CT Rad equipment meets quality standard of care and radiation dose reduction techniq ues were employed. CTDIvol: 14.4 - 18.7 mGy. DLP: 1928 mGy-cm.. LIMITATIONS: None. FINDINGS: LOWER CHEST: No significant findings. No nodules or infiltrates. LIVER: Normal size. No masses. No dilated ducts. SPLEEN: Normal size. No focal lesions. PANCREAS: No masses. No significant calcifications. No adjacent inflammation or peripancreatic fluid collections. Pancreatic duct not dilated. GALLBLADDER: Cholelithiasis. 1.5 cm stone in the region of the gallbladder neck. No CT evidence of acute cholecystitis. No duct dilatation. ADRENAL GLANDS: No significant masses or asymmetry. RIGHT KIDNEY AND URETER: No solid masses. No significant calcification. No hydronephrosis or hydroure ter. LEFT KIDNEY AND URETER: No solid masses. No significant calcification. No hydronephrosis or hydrouret er. AORTA AND VESSELS: No aneurysm. No dissection. Renal arteries, SMA, celiac without stenosis. RETROPERITONEUM: No retroperitoneal adenopathy, hemorrhage or masses. BOWEL AND PERITONEAL CAVITY: No masses or inflammatory changes. No free fluid or peritoneal masses. APPENDIX: Normal. PELVIS: No mass. No free fluid. Normal bladder. ABDOMINAL WALL: No masses. No hernias. BONES: No significant or acute findings. OTHER: No other significant finding. IMPRESSION: 1. Cholelithiasis. No CT evidence of acute cholecystitis. 2. No other acute or suspicious abdominopelvic abnormality. TECHNICAL DOCUMENTATION: JOB ID: [id number] Quality ID # [id number]: Final reports with documentation of one or more dose reduction techniques (e.g., Au tomated exposure control, adjustment of the mA and/or kV according to patient size, use of iterative reconstruction technique) 2010 [email or web address]- All Rights Reserved Reading location - IP/workstation name: [email or web address]
[2019-02-19 11:22] VITALS: BP 130/77
== END 2019-02-19 11:21 | disposition home or self-care (01) ==
LOC: ER 02:23
DX: K80.20 Calculus of gallbladder without cholecystitis without obstruction (principal); K76.0 Fatty (change of) liver, not elsewhere classified; R11.2 Nausea with vomiting, unspecified; R10.13 Epigastric pain; R10.12 Left upper quadrant pain; R10.11 Right upper quadrant pain; R10.811 Right upper quadrant abdominal tenderness; R10.813 Right lower quadrant abdominal tenderness; R10.812 Left upper quadrant abdominal tenderness; I10 Essential (primary) hypertension; G40.909 Epilepsy, unspecified, not intractable, without status epilepticus; Z79.899 Other long term (current) drug therapy; Z88.0 Allergy status to penicillin
CPT/HCPCS: 36415; 83690; 85025; 80053; 81001; 84484; 80307; 76705; 74177; J1200; J3490; J2270; S0119; J2550; J7030; 96361; 96374; 96375; 99284; J0500

== ENCOUNTER 2019-04-21 11:18 | Day surgery (SDC) | payer OTHER, MEDICARE ==
[2019-04-14 09:37] LABS: HEMATOCRIT 47.9 % (37.9-51.0); HEMOGLOBIN 17.1 g/dL (13.5-17.0); MEAN CORPUSCULAR HEMOGLOBIN 30.5 pg (27.0-33.4); MEAN CORPUSCULAR HGB CONC 35.7 g/dL (32.0-36.0); MEAN CORPUSCULAR VOLUME 86 fl (80-97); PLATELET COUNT 247 10^3/uL (150-450); RED BLOOD COUNT 5.59 10^6/uL (4.35-5.55); RED CELL DISTRIBUTION WIDTH 13.7 % (11.5-14.0); WHITE BLOOD COUNT 7.4 10^3/uL (4.0-10.5)
[2019-04-14 10:14] LABS: ALBUMIN 4.1 g/dL (3.5-5.0); ALKALINE PHOSPHATASE 97 U/L (38-126); AMYLASE 44 U/L (30-110); ANION GAP 7 (5-19); ASPARTATE AMINO TRANSFERASE 33 U/L (17-59); BILIRUBIN,TOTAL 0.7 mg/dL (0.2-1.3); BLOOD UREA NITROGEN 13 mg/dL (7-20); CALCIUM 9.3 mg/dL (8.4-10.2); CARBON DIOXIDE 27 mmol/L (22-30); CHLORIDE 106 mmol/L (98-107); GLUCOSE 79 mg/dL (75-110); POTASSIUM 4.3 mmol/L (3.6-5.0); TOTAL PROTEIN 7.3 g/dL (6.3-8.2)
[~2019-04-21 11:18] MED LIST: ACETAMINOPHEN 325 MG TABLET PO PRN; CLINDAMYCIN 600 MG/D5W RTU 600 MG/50 ML RTUPB IV ONE; CLINDAMYCIN 600 MG/D5W RTU 600 MG/50 ML RTUPB IV PRN; DEXAMETHASONE SOD PHOSPHATE INJ 4 MG/1 ML VIAL ONE; FENTANYL CITRATE INJ/PF 100 MCG/2 ML AMPUL ONE; KETOROLAC TROMETHAMINE 60 MG/2 ML SDV ONE; LACTATED RINGERS 1000 ML IV PRN; LIDOCAINE 0.5% INJ-PF (5 MG/ML) 50 ML SDV SUBCUT PRN; METRONIDAZOLE 500 MG/NS RTU 500 MG/100 ML RTUPB IV ONE; METRONIDAZOLE 500 MG/NS RTU 500 MG/100 ML RTUPB IV PRN; MIDAZOLAM 2 MG/2 ML INJ ONE; ONDANSETRON HCL INJ/PF 4 MG/2 ML SDV ONE; PROPOFOL INJ 200 MG/20 ML VIAL IV ONE; ROCURONIUM BROMIDE INJ 50 MG/5 ML VIAL IV ONE; SUCCINYLCHOLINE CHLORIDE INJ 200 MG/10 ML VIAL ONE
[2019-04-21] MEDS ORDERED: PROMETHAZINE HCL INJ 25 MG/1 ML VIAL ONE (12:37)
[2019-04-21] MEDS ORDERED: BUPIVACAINE HCL 0.5%-EPI 1:200000 INJ/PF 30 ML VIAL ONE (12:49)
[2019-04-21] MEDS ORDERED: BUPIVACAINE INJ/PF LIPOSOME/PF 266 MG/20 ML SDV INJ ONE (12:50)
[2019-04-21] MEDS ORDERED: BUPIVACAINE HCL 0.5%/EPI 1:200000 INJ 1.8 ML CARTRIDGE DENT ONE ×2 (12:52)
[2019-04-21] MEDS ORDERED: MORPHINE SULFATE 10 MG/ML INJ IV PRN (13:13)
[2019-04-21] MEDS ORDERED: FENTANYL CITRATE INJ/PF 100 MCG/2 ML AMPUL IV PRN ×3 (13:13)
[2019-04-21] MEDS ORDERED: MEPERIDINE HCL/PF INJ 25 MG/1 ML DISP.SYRIN IV PRN (13:13)
[2019-04-21] MEDS ORDERED: ONDANSETRON HCL INJ/PF 4 MG/2 ML SDV IV PRN (13:13)
[2019-04-21] MEDS ORDERED: OXYCODONE-ACETAMINOPHEN 5-325 MG TABLET PO PRN ×3 (13:13→16:00)
[2019-04-21] MEDS ORDERED: DIPHENHYDRAMINE HCL 50 MG/ML VIAL IV PRN (13:13)
--- NOTE | 2019-04-21 14:34 | Discharge Summary ---
Discharge Summary (SDC) - Discharge Final Diagnosis: Cystitis cholecystitis and cholelithiasis Date of Surgery: 04/21/19 Condition: Good Forms: ASU Anesthesia D/C Instruction, Discharge POC-Surgical Service Treatment or Instructions: NO LIFTING OVER 10 POUNDS UNTIL CLEARED AT FOLLOW UP APPOINTMENT, OTHERWISE, ACTIVITY TOLERATED TAKE MEDICATIONS DIRECTED NO TUB BATHS AND NO SWIMMING FOR 2 WEEKS MAY SHOWER TOMORROW DIET TOLERATED FOLLOW UP WITH YOUR MD DIRECTED LOOK FOR SIGNS OF INFECTIONS, IF SIGNS OCCUR PLEASE GO TO THE EMERGENCY ROOM FOR EVALUATION Prescriptions: Oxycodone HCl/Acetaminophen [Percocet 10-325 Mg Tablet] 1 each PO Q6HP PRN #20 tablet PRN Reason: Referrals: VALERIO VERMA MD [ACTIVE STAFF] - 04/29/19 10:45 am Discharge Diet: As Tolerated Discharge Activity: Activity As Tolerated, No Lifting Over 10 Pounds Report the Following to Your Physician Immediately: Yellow Skin - Patient is a follow-up appointment with me in 10 to 14 days, Fever over 101 Degrees, Unusual Bleeding
--- NOTE | 2019-04-21 14:37 | Operative Report ---
Nonrecallable Operative Report DATE OF SURGERY: 04/21/19 PREOPERATIVE DIAGNOSIS: Symptomatic cholelithiasis POSTOPERATIVE DIAGNOSIS: Symptomatic cholelithiasis and chronic cholecystitis OPERATION: Scopic cholecystectomy with intraoperative cholangiograms SURGEON: VALERIO VERMA ANESTHESIA: GA TISSUE REMOVED OR ALTERED: Gallbladder COMPLICATIONS: None ESTIMATED BLOOD LOSS: 50 cc INTRAOPERATIVE FINDINGS: See dictation PROCEDURE: After obtaining informed consent, the patient was taken to the operating room. General Anesthesia was induced; the arms were extended, and the abdomen was exposed, and prepped and draped in a sterile fashion. Instrumentation was set up for laparoscopic cholecystectomy. Surgical plan and surgical timeout were conducted. A vertical incision was made above the umbilicus, and a verres needle was inserted uneventfully into the peritoneal cavity. Pneumoperitoneum was established. The verres needle was removed and a 10 mm trocar was inserted and a 10 mm laparoscope was inserted. Visualization of the peritoneal cavity confirmed safe uneventful entry. Under direct visualization 3 additional 5 mm ports were established, one in the subxiphoid position and second in the subcostal position. Visualization of the hepatobiliary anatomy revealed no anatomic variations. A grasper was placed on the fundus of the gallbladder and the gallbladder is elevated over the right surface of the liver; a second grasper was used to grasp the infundibulum of the gallbladder. The neck of the gallbladder and junction with the cystic duct was dissected out. The Cystic artery was in its usual location medial and cephalad to the cystic duct. The cystic artery was surrounded with a right angle clamp, clipped twice proximally and divided with laparoscopic scissors. We now opened the triangle of Calot by dividing the peritoneal reflection on both the medial and lateral sides of the cystic duct infundibular junction. The critical view was obtained. We now milked the cystic duct of any possible stones, clipped the cystic duct approximately 2 times once distally. Because of not completely clear anatomy we obtained a intraoperative cholangiogram by placing a cholangiogram catheter into the cystic duct stump inflating the balloon obtaining a cholangiogram which showed good flow into the duodenum as well as common bile duct and right hepatic and left hepatic ducts filling normally. We then placed an Endoloop around the cystic duct stump. The gallbladder was now removed from the undersurface of the liver using hook cautery dissection. Graspers were repositioned and the gallbladder was removed uneventfully from the abdominal cavity through the super umbilical port site incision. The specimen was examined, then passed off to pathology for permanent analysis. We returned to the peritoneal cavity check for bleeding, and evidence of bile leak, and there was none. We Confirmed satisfactory placement of clips on cystic duct and cystic artery were secured . At this point we felt the operation was complete. The subcutaneous tissue was then anesthetized with quarter percent Marcaine Sponge and needle counts are correct. All ports removed under direct visualization pneumoperitoneum evacuated, and 5 mm port wounds closed with 3-0 Vicryl suture, benzoin and Steri-Strips. The patient was extubated, and taken to the recovery room in stable condition.
[2019-04-21] MEDS ORDERED: ACETAMINOPHEN 1,000 MG/100 ML RTUPB IV ONE (15:21)
--- NOTE | 2019-04-21 15:36 | RADIOLOGY REPORT (SQ) ---
EXAM DESCRIPTION: CHOLANGIOGRAM OPERATIVE COMPLETED DATE/TIME: 04/21/2019 2:16 pm REASON FOR STUDY: CHOLANGIOGRAM IN OR K80.20 CALCULUS OF GALLBLADDER W/O CHOLECYSTITIS W/O OBSTRUC COMPARISON: None. FLUOROSCOPY TIME: 0.5 minutes. 5 images saved to PACS. TECHNIQUE: 5 images were obtained from an intraoperative cholangiogram. LIMITATIONS: None. FINDINGS: There is opacification of the bile ducts, cystic duct remnants and second portion of the d uodenum without evidence of fixed filling defect or significant extravasation. IMPRESSION: INTRAOPERATIVE CHOLANGIOGRAM. COMMENT: Quality ID 145: Final reports for procedures using fluoroscopy that document radiation exp osure indices, or exposure time and number of fluorographic images (if radiation exposure indices are not available) TECHNICAL DOCUMENTATION: JOB ID: [id number] 2010 [employer]- All Rights Reserved Reading location - IP/workstation name: [email or web address]
[2019-04-21] MEDS ORDERED: OXYCODONE-ACETAMINOPHEN 5-325 MG TABLET ONE (15:56)
[2019-04-21 18:47] VITALS: BP 146/85
== END 2019-04-21 16:45 | disposition home or self-care (01) ==
LOC: OROUT 11:18
PROVIDERS: ATTEND Surgery
DX: K80.10 Calculus of gallbladder with chronic cholecystitis without obstruction (principal); G40.909 Epilepsy, unspecified, not intractable, without status epilepticus; Z87.891 Personal history of nicotine dependence; Z88.0 Allergy status to penicillin; Z88.8 Allergy status to other drugs, medicaments and biological substances; Z79.899 Other long term (current) drug therapy
CPT/HCPCS: 86900; 86901; 36415 ×2; 86850; 82962; 82150; 85027; 80076; 80048; 88304 ×2; 74300; 00790; 47563; J2250; J3490 ×3; J1100; J1885; J3010; J0330; J2405; J2704; J0131; 790; C9290; J2550